=== PATIENT | male | born 1950 | race Caucasian/White ===

== ENCOUNTER 2018-04-02 17:42 | Inpatient (IN) | payer MEDICARE ==
[~2018-04-02] VITALS: Ht 167.6 cm; Wt 108.0 kg
--- NOTE | ~2018-04-02 | PN ---
PATIENT:WALT GONCALVES MEDICAL RECORD: [id number] LOCATION:SARAH ReisJoellenRebecca ADMISSION DATE: 04/02/18 PROGRESS NOTE DATE OF SERVICE: 04/05/2018 SUBJECTIVE: The patient's case was discussed with staff. He has no new complaint. OBJECTIVE: The patient is in good behavioral control. He has not been aggressive. ASSESSMENT: No change in diagnoses. PLAN: The patient is in good behavioral control. He has limited insight about his condition. I am going to discontinue his Zyprexa. TRANSINT:[id number] Voice Confirmation ID: [id number] DOCUMENT ID: [id number] KIET ROLDAN MD at 1348 CC: [id number] DICTATION DATE: 04/05/18 1134 LEAD ELECTRICAL ENGINEER: 04/05/18 1438 ADM IN [place] [id number] [place] [address]
--- NOTE | ~2018-04-02 | PN ---
PATIENT:WALT GONCALVES MEDICAL RECORD: [id number] LOCATION:SARAH Castro113 ADMISSION DATE: 04/02/18 PROGRESS NOTE DATE OF SERVICE: 04/07/2018 SUBJECTIVE: The patient's case was discussed with staff. He has no new complaint. OBJECTIVE: The patient is in fair behavioral control, but still quite confused and at times very aggressive. ASSESSMENT: No change in diagnoses. PLAN: I have reviewed current medicines and will maintain them. His long-term prognosis is guarded. TRANSINT:[id number] Voice Confirmation ID: [id number] DOCUMENT ID: [id number] KIET ROLDAN MD at 0951 CC: [id number] DICTATION DATE: 04/07/18926 REPAIRER AND CHECKER: 04/07/18 1210 ADM IN [place] [id number] [place] [address]
--- NOTE | ~2018-04-02 | PN ---
PATIENT:WALT GONCALVES MEDICAL RECORD: [id number] LOCATION:SARAH Nicholson ADMISSION DATE: 04/02/18 PROGRESS NOTE DATE OF SERVICE: 04/15/2018 SUBJECTIVE: The patient's case was discussed with staff. He has no new complaint. OBJECTIVE: The patient is in good behavioral control. He is not eating very well, but he is not aggressive at all. He does have a number of bizarre delusions. He is taking Zyprexa for that and I think they are improving. ASSESSMENT: No change in diagnoses. PLAN: I am going to continue the current medicines with the exception of the Klonopin, which I am going to consolidate into a single nighttime dose to assist with sleep consolidation. TRANSINT:[id number] Voice Confirmation ID: [id number] DOCUMENT ID: [id number] KIET ROLDAN MD at 1212 CC: [id number] DICTATION DATE: 04/15/18 1106 STUDENT SUCCESS ADVISOR: 04/15/18 1110 ADM IN [place] [id number] [place] [id number]
--- NOTE | ~2018-04-02 | PN ---
PATIENT:WALT GONCALVES MEDICAL RECORD: [id number] LOCATION:SARAH Nicholson ADMISSION DATE: 04/02/18 PROGRESS NOTE DATE OF SERVICE: 04/10/2018 SUBJECTIVE: The patient's case was discussed with staff. He has no new complaint. OBJECTIVE: The patient is in good behavioral control. He has limited insight. He is oriented to person, place and somewhat to time and situation. He was angry yesterday, but it did not become aggressive and he did not require p.r.n. medication. He is tolerating his current dose of Klonopin reasonably well. I think it has made him calmer and at this point I do not see evidence of sedation. He clearly has significant cognitive impairment. I am going to prescribe Aricept at a dose of 10 mg at bedtime. Aricept is being used to treat his underlying cognitive problems. He will be monitored for clinical changes associated with its use. TRANSINT:[id number] Voice Confirmation ID: [id number] DOCUMENT ID: [id number] KIET ROLDAN MD at 1054 CC: [id number] DICTATION DATE: 04/10/18 0950 HOTBED TRANSFER OPERATOR: 04/10/18 1112 ADM IN [place] [id number] [place] [address]
--- NOTE | ~2018-04-02 | PN ---
PATIENT:WALT GONCALVES MEDICAL RECORD: [id number] LOCATION:SARAH Nicholson ADMISSION DATE: 04/02/18 PROGRESS NOTE DATE OF SERVICE: 04/12/2018 SUBJECTIVE: The patient's case was discussed with staff. He has no new complaint. OBJECTIVE: The patient denies intent to harm himself or others. He generally is tolerating his medicines well. ASSESSMENT: No change in diagnoses. PLAN: Current medicines have been reviewed and will be maintained. I am going to change the Klonopin to a twice daily dosing schedule. He will be monitored for clinical changes associated with this. Overall, he is significantly better. TRANSINT:[id number] Voice Confirmation ID: [id number] DOCUMENT ID: [id number] KIET ROLDAN MD at 1223 CC: [id number] DICTATION DATE: 04/12/18 1458 SOFTWARE PROGRAM MANAGER: 04/12/18 1653 ADM IN [place] [address] [place] [id number]
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
--- NOTE | ~2018-04-02 | PN ---
PATIENT:WALT GONCALVES MEDICAL RECORD: [id number] LOCATION:SARAH Nicholson ADMISSION DATE: 04/02/18 PROGRESS NOTE DATE OF SERVICE: 04/06/2018 SUBJECTIVE: The patient's case was discussed with staff. He has no new complaint. OBJECTIVE: The patient denies intent to harm himself or others. He does tolerate his medicines well. He has not been aggressive. He has very limited insight about his condition. ASSESSMENT: No change in diagnoses. PLAN: Supportive and educational interventions were made. Long-term prognosis is guarded. TRANSINT:[id number] Voice Confirmation ID: [id number] DOCUMENT ID: [id number] KIET ROLDAN MD at 0846 CC: [id number] DICTATION DATE: 04/06/18 1449 MANTEL CRAFTSMAN: 04/06/18 1456 ADM IN [place] [address] [place] [address]
--- NOTE | ~2018-04-02 | PSY ---
PATIENT NAME:WALT GONCALVES MEDICAL RECORD: [id number] : 48 LOCATION:SARAH Bonilla ADMISSION DATE: 04/02/18 ACCOUNT: [id number] PSYCHIATRIC EVALUATION DATE OF EVALUATION: 04/03/18 IDENTIFYING DATA: The patient is 67 years old and he is admitted to the hospital on a voluntary basis. CHIEF COMPLAINT: Aggression. HISTORY OF PRESENT ILLNESS: The patient is brought to us from the [facility]. He has been combative with staff there. He has been throwing excrement at others and was not redirectable. The patient now says he does not know what happened, has no recollection of this and denies that there is a problem. He endorses a number of depressive symptoms, but denies that he is depressed. He denies psychotic symptoms. He also denies any thoughts of wanting to harm himself or others. The long term reports that this is a dramatic change in his behaviors. PAST MEDICAL HISTORY: Significant for a fall in 2017. Apparently, he fell down the stairs. At that time, he ended up getting a closed head injury. He apparently was cognitively impaired prior to this. He does have a history of hypertension. He also apparently has occasional seizures associated with the head injury. PAST PSYCHIATRIC HISTORY: Significant for dementia and a closed head injury. He also has a history of depression and aggressive behaviors. FAMILY HISTORY: Noncontributory. ALLERGIES: No known drug allergies. CURRENT MEDICATIONS: Include Zyprexa, Keppra, melatonin, Cozaar, Norvasc, and Zoloft. SOCIAL HISTORY: The patient is single. Apparently, he was in the past. I am not sure if he is or . He says he has 2 adult children. 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 He says that he used to drink a 30-pack of beer daily, but that he quit 4 years ago. MENTAL STATUS EXAMINATION: The patient is awake, alert and oriented to person only. His mood is anxious. His affect is constricted. Thought processes are circumstantial. Memory, concentration, and abstraction abilities are moderately impaired and he denies any active intent to harm himself or others as well as overt psychotic symptoms. ASSETS: Supportive family members. LIABILITIES: Limited insight. DIAGNOSTIC IMPRESSION: AXIS I: Alcohol-related dementia. AXIS II: Deferred. AXIS III: Closed head injury, hypertension, and seizure disorder. AXIS IV: Moderate stressors. AXIS V: Global assessment of functioning is 35. PLAN: At this time, the patient is admitted to the hospital secondary to aggressive behavior associated with a dementing illness. The dementing illness is aggravated by closed head injury a year ago. He will be comprehensively evaluated and treated with both mood stabilizing and memory enhancing medications as deemed appropriate. His long-term prognosis is guarded. TRANSINT:[id number] Voice Confirmation ID: [id number] DOCUMENT ID: [id number] KIET ROLDAN MD at 1107 CC: [id number] DICTATION DATE: 04/03/18 1042 COMMUNICATIONS TECH: 04/03/18 1219 [facility] IN [place] [address] [place] [address]
--- NOTE | ~2018-04-02 | PN ---
PATIENT:WALT GONCALVES MEDICAL RECORD: [id number] LOCATION:SARAH Castro113 ADMISSION DATE: 04/02/18 PROGRESS NOTE DATE OF SERVICE: 04/13/2018 SUBJECTIVE: The patient's case was discussed with staff. He has no new complaint. OBJECTIVE: The patient is much calmer today. He has limited insight about his condition. ASSESSMENT: No change in diagnoses. PLAN: Current medicines and therapies have been reviewed. I am going to reduce his Klonopin very slightly. TRANSINT:[id number] Voice Confirmation ID: [id number] DOCUMENT ID: [id number] KIET ROLDAN MD at 0922 CC: [id number] DICTATION DATE: 04/13/18 1249 FAMILY PRACTICE DOCTOR: 04/13/18 1252 ADM IN [place] [address] [place] [id number]
--- NOTE | ~2018-04-02 | PN ---
PATIENT:WALT GONCALVES MEDICAL RECORD: [id number] LOCATION:SARAH Castro113 ADMISSION DATE: 04/02/18 PROGRESS NOTE DATE OF SERVICE: 04/16/2018 SUBJECTIVE: The patient's case was discussed with staff. He has no new complaint. OBJECTIVE: The patient is in good behavioral control. He has limited insight about his condition. He is not showing any aggression. ASSESSMENT: No change in diagnoses. PLAN: The patient will be transitioned out of the hospital today. He will have follow up with his primary care snf physician. TRANSINT:[id number] Voice Confirmation ID: [id number] DOCUMENT ID: [id number] KIET ROLDAN MD at 1421 CC: [id number] DICTATION DATE: 04/16/18 1243 SUPERVISOR ENGINE REPAIR: 04/16/18 1248 DIS IN 04/16/18 [place] [id number] [place] [address]
--- NOTE | ~2018-04-02 | PN ---
PATIENT:WALT GONCALVES MEDICAL RECORD: [id number] LOCATION:SARAH Nicholson ADMISSION DATE: 04/02/18 PROGRESS NOTE DATE OF SERVICE: 04/14/2018 SUBJECTIVE: The patient's case was discussed with staff. He has no new complaint. OBJECTIVE: The patient denies intent to harm himself or others. He tolerates his medicines well. ASSESSMENT: No change in diagnoses. PLAN: Current medicines have been reviewed and will be maintained. His long-term prognosis is guarded. TRANSINT:[id number] Voice Confirmation ID: [id number] DOCUMENT ID: [id number] KIET ROLDAN MD at 1026 CC: [id number] DICTATION DATE: 04/14/18 113 PHARMACOGNOSIST: 04/14/18 1150 ADM IN [place] [address] [place] [address]
--- NOTE | ~2018-04-02 | PN ---
PATIENT:WALT GONCALVES MEDICAL RECORD: [id number] LOCATION:SARAH Nicholson ADMISSION DATE: 04/02/18 PROGRESS NOTE DATE OF SERVICE: 04/11/2018 SUBJECTIVE: The patient's case was discussed with staff. He has no new complaint. OBJECTIVE: The patient is disorganized with very limited insight about his condition, but he has not been agitated today. ASSESSMENT: No change in diagnoses. PLAN: Supportive and educational interventions were made. I have reviewed his current medications and will maintain them. TRANSINT:[id number] Voice Confirmation ID: [id number] DOCUMENT ID: [id number] KIET ROLDAN MD at 1417 CC: [id number] DICTATION DATE: 04/11/18 1125 SUPERVISOR TUMBLING AND ROLLING: 04/11/18 1308 ADM IN [place] [id number] [place] [address]
--- NOTE | ~2018-04-02 | PN ---
PATIENT:WALT GONCALVES MEDICAL RECORD: [id number] LOCATION:SARAH Castro113 ADMISSION DATE: 04/02/18 PROGRESS NOTE DATE OF SERVICE: 04/09/2018 SUBJECTIVE: The patient's case was discussed with staff. He has no new complaint. OBJECTIVE: The patient had some disruptive acting out behavior, but it is nothing that has required p.r.n. medication. He is pretty limited in his insight. Obviously with his head injury, there is a great deal of disinhibition. I am going to increase the dose of his Zoloft slightly. His long-term prognosis is guarded. TRANSINT:[id number] Voice Confirmation ID: [id number] DOCUMENT ID: [id number] KIET ROLDAN MD at 0926 CC: [id number] DICTATION DATE: 04/09/18 1111 BINDER COVERSTITCH: 04/09/18 1143 ADM IN [facility] [address] [place] [address]
--- NOTE | ~2018-04-02 | PN ---
PATIENT:WALT GONCALVES MEDICAL RECORD: [id number] LOCATION:SARAH Nicholson ADMISSION DATE: 04/02/18 PROGRESS NOTE DATE OF SERVICE: 04/08/2018 SUBJECTIVE: The patient's case was discussed with staff. He has no new complaint. OBJECTIVE: The patient is in good behavioral control with limited insight about his condition. He generally is tolerating his medicines well. Unfortunately, he becomes intermittently quite aggressive with staff. This is seriously problematic in trying to manage his behaviors. I have reviewed his medicines and have decided to start him on a low dose of Klonopin for his underlying agitation and anxiety. He will be monitored for clinical changes associated with its use. TRANSINT:[id number] Voice Confirmation ID: [id number] DOCUMENT ID: [id number] KIET ROLDAN MD at 1024 CC: [id number] DICTATION DATE: 04/08/18 1039 NIGHT CLERK AUDITOR: 04/08/18 1129 ADM IN [place] [address] [place] [address]
[2018-04-02] MEDS ORDERED: COZAAR50 MG PO (19:56)
[2018-04-02] MEDS ORDERED: CIMETIDINE200 MG PO (19:56)
[2018-04-02] MEDS ORDERED: GLYCOLAX527 GM PO (19:57)
[2018-04-02] MEDS ORDERED: ZOLOFT50 MG PO (19:58)
[2018-04-02] MEDS ORDERED: KEPPRA500 MG PO (19:58)
[2018-04-02] MEDS ORDERED: NORVASC5 MG PO (19:59)
[2018-04-02] MEDS ORDERED: MELATONIN 3 MG1 TAB PO (20:00)
[2018-04-02] MEDS ORDERED: ZYPREXA2.5 MG PO (20:01)
[2018-04-02 20:42] VITALS: BP 131/63
[2018-04-03 02:53] VITALS: BP 152/84; BMI 38.5
[2018-04-03 05:56] LABS: BASOPHILS 0.3 % (0-2); EOSINOPHILS 1.8 % (0-7); HEMATOCRIT 38.5 % (42.0-54.0); HEMOGLOBIN 12.9 g/dL (13.5-17.5); IMMATURE GRANULOCYTES 0.1 % (0-5); LYMPHOCYTES 36.2 % (15-50); MCH 30.2 pg (26.0-34.0); MCHC 33.5 g/dL (31.0-37.0); MCV 90.2 fL (80.0-100.0); MEAN PLATELET VOLUME 9.8 fL (7.4-10.4); MONOCYTES 6.9 % (2-11); NEUTROPHILS 54.7 % (40-80); PLATELET COUNT 196 10x3/uL (130-400); RBC 4.27 10x6/uL (4.20-6.10); RDW 13.6 % (11.5-14.5); WBC 7.8 10x3/uL (4.8-10.8)
[2018-04-03 06:08] LABS: ALBUMIN 2.8 g/dL (3.4-5.0); ALKALINE PHOSPHATASE 110 U/L (46-116); ALT (SGPT) 13 U/L (10-68); BILIRUBIN - TOTAL 0.16 mg/dL (0.2-1.3); CALC OSMOLALITY 286 mosm/kg (275-300); CALCIUM 8.3 mg/dL (8.5-10.1); CARBON DIOXIDE 27.2 mmol/L (21.0-32.0); CHLORIDE - SERUM 109 mmol/L (98-107); CHOL - HDL RATIO 3.8 ratio (2.3-4.9); CHOLESTEROL, TOTAL 167 mg/dL (0-200); CREATININE - SERUM 0.8 mg/dL (0.6-1.3); GLUCOSE 86 mg/dL (74-106); HDL CHOLESTEROL 44 mg/dL (32-96); LDL CHOLESTEROL 113 mg/dL (0-100); LDL-HDL RATIO 2.6 ratio (1.5-3.5); POTASSIUM - SERUM 3.7 mmol/L (3.5-5.1); PROTEIN - SERUM 6.2 g/dL (6.4-8.2); SODIUM 144 mmol/L (136-145); THYROID STIMULATING HORMONE 1.19 uIU/mL (0.36-3.74); TRIGLYCERIDE 53 mg/dL (30-200); UREA NITROGEN 16 mg/dL (7-18); eGFR NON AFRICAN AMERICAN > 90 mL/min (90-120)
[2018-04-03 09:46] VITALS: Ht 167.6 cm; Wt 108.0 kg
[2018-04-03 10:30] VITALS: BP 134/78
[2018-04-03 20:27] VITALS: BP 149/81
[2018-04-04 08:09] LABS: VITAMIN D 25 HYDROXY 25.2 ng/mL (30.0-100.0)
[2018-04-04 08:10] VITALS: BP 128/80
[2018-04-04 10:32] LABS: APPEARANCE CLEAR (CLEAR); BILIRUBIN NEGATIVE (NEGATIVE); COLOR YELLOW (YELLOW); GLUCOSE NEGATIVE (NEGATIVE); KETONE NEGATIVE (NEGATIVE); NITRITE NEGATIVE (NEGATIVE); PROTEIN NEGATIVE (NEGATIVE); SPECIFIC GRAVITY 1.015 (1.005-1.020); UROBILINOGEN NORMAL (NORMAL)
[2018-04-04 10:33] LABS: BACTERIA NONE SEEN /hpf (NONE SEEN); EPITHELIAL CELLS 0-5 /hpf (0-5); RED CELLS - URINE NONE SEEN /hpf (0-5); WHITE CELLS - URINE 0-5 /hpf (0-5)
[2018-04-04 20:14] VITALS: BP 140/69
[2018-04-05 08:00] VITALS: BP 138/81
[2018-04-05 19:57] VITALS: BP 143/85
[2018-04-06 03:12] LABS: RAPID PLASMA REAGIN Non Reactive (Non Reactive)
[2018-04-06 07:30] LABS: FOLATE (FOLIC ACID) - SERUM 7.7 ng/mL (>3.0)
[2018-04-06 09:30] VITALS: BP 131/84
[2018-04-06 20:51] VITALS: BP 144/81
[2018-04-07 08:00] VITALS: BP 137/86
[2018-04-07 19:00] VITALS: BP 130/81
[2018-04-08 08:51] VITALS: BP 127/78
[2018-04-08 19:25] VITALS: BP 127/78
[2018-04-08 20:06] VITALS: BP 145/76
[2018-04-09 10:05] VITALS: BP 134/68
[2018-04-09 20:10] VITALS: BP 150/75
[2018-04-10 09:15] VITALS: BP 129/72
[2018-04-10 19:32] VITALS: BP 147/79
[2018-04-11 08:00] VITALS: BP 130/82
[2018-04-11 19:54] VITALS: BP 148/82
[2018-04-12 02:14] LABS: APPEARANCE CLEAR (CLEAR); BILIRUBIN NEGATIVE (NEGATIVE); COLOR YELLOW (YELLOW); GLUCOSE NEGATIVE (NEGATIVE); KETONE NEGATIVE (NEGATIVE); NITRITE NEGATIVE (NEGATIVE); PROTEIN NEGATIVE (NEGATIVE); UROBILINOGEN NORMAL (NORMAL)
[2018-04-12 07:00] VITALS: BP 122/85
[2018-04-12 20:21] VITALS: BP 140/91
[2018-04-13 07:00] VITALS: BP 134/80
[2018-04-13 20:15] VITALS: BP 130/75
[2018-04-14 14:37] VITALS: BP 125/77
[2018-04-14 20:34] VITALS: BP 146/78
[2018-04-15 12:15] VITALS: BP 118/75
[2018-04-15 20:32] VITALS: BP 160/74
[2018-04-16 10:25] VITALS: BP 147/86
[2018-04-16] MEDS ORDERED: Levaquin PO (12:44)
[2018-04-16] MEDS ORDERED: Aricept PO (12:44)
[2018-04-16] MEDS ORDERED: ZOLOFT100 MG PO (12:44)
[2018-04-16] MEDS ORDERED: VITAMIN D5000 UNIT PO (12:45)
[2018-04-16] MEDS ORDERED: KLONOPIN0.5 MG PO (12:45)
[2018-04-16] MEDS ORDERED: GEODON20 MG PO (12:45)
[2018-04-19 18:08] LABS: AEROBE ID Final report (())
[2018-04-22 17:12] LABS: AEROBE ID Final report (())
== END 2018-04-16 14:40 | DRG 897 ==
LOC: D.PSYCH 17:42
PROVIDERS: Family Medicine; Psychiatry & Neurology Psychiatry
DX: F10.97 Alcohol use, unspecified with alcohol-induced persisting dementia (principal); N39.0 Urinary tract infection, site not specified; I10 Essential (primary) hypertension; G40.909 Epilepsy, unspecified, not intractable, without status epilepticus; F41.9 Anxiety disorder, unspecified; F32.9 Major depressive disorder, single episode, unspecified; R26.89 Other abnormalities of gait and mobility; E55.9 Vitamin D deficiency, unspecified; Z91.81 History of falling

== ENCOUNTER 2018-06-08 08:58 | Inpatient (IN) | payer MEDICARE ==
[~2018-06-08] VITALS: Ht 167.6 cm; Wt 108.2 kg
[~2018-06-08 08:58] MED LIST: Aricept PO; CIMETIDINE200 MG PO; COZAAR50 MG PO; GEODON20 MG PO; GLYCOLAX527 GM PO; KEPPRA500 MG PO; KLONOPIN0.5 MG PO; Levaquin PO; MELATONIN 3 MG1 TAB PO; NORVASC5 MG PO; VITAMIN D5000 UNIT PO; ZOLOFT100 MG PO; ZOLOFT50 MG PO; ZYPREXA2.5 MG PO
[2018-06-08 10:27] LABS: BASOPHILS 0.1 % (0-2); EOSINOPHILS 0.6 % (0-7); HEMATOCRIT 44.4 % (42.0-54.0); HEMOGLOBIN 14.6 g/dL (13.5-17.5); IMMATURE GRANULOCYTES 0.1 % (0-5); LYMPHOCYTES 20.3 % (15-50); MCH 29.8 pg (26.0-34.0); MCHC 32.9 g/dL (31.0-37.0); MCV 90.6 fL (80.0-100.0); MEAN PLATELET VOLUME 9.8 fL (7.4-10.4); MONOCYTES 4.2 % (2-11); NEUTROPHILS 74.7 % (40-80); PLATELET COUNT 196 10x3/uL (130-400); RDW 13.2 % (11.5-14.5); WBC 8.3 10x3/uL (4.8-10.8)
[2018-06-08 10:42] LABS: ALBUMIN 3.2 g/dL (3.4-5.0); ANION GAP 10.2 mmol/L (8-16); BILIRUBIN - TOTAL 0.24 mg/dL (0.2-1.3); CALCIUM 8.5 mg/dL (8.5-10.1); CARBON DIOXIDE 30.7 mmol/L (21.0-32.0); CHOL - HDL RATIO 5.4 ratio (2.3-4.9); CREATININE - SERUM 1.1 mg/dL (0.6-1.3); LDL-HDL RATIO 3.5 ratio (1.5-3.5); POTASSIUM - SERUM 3.9 mmol/L (3.5-5.1); PROTEIN - SERUM 7.2 g/dL (6.4-8.2); THYROID STIMULATING HORMONE 0.83 uIU/mL (0.36-3.74)
[2018-06-08 13:01] VITALS: BP 110/58; BMI 38.5
[2018-06-08] MEDS ORDERED: CIMETIDINE200 MG PO (13:24)
[2018-06-08] MEDS ORDERED: GEODON20 MG PO (13:25)
[2018-06-08 19:45] VITALS: BP 141/66
[2018-06-09 07:30] LABS: RAPID PLASMA REAGIN Non Reactive (Non Reactive)
[2018-06-09 08:20] LABS: FOLATE (FOLIC ACID) - SERUM 9.7 ng/mL (>3.0); VITAMIN D 25 HYDROXY 35.2 ng/mL (30.0-100.0)
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
[2018-06-09 09:49] VITALS: BMI 38.4
[2018-06-09 10:19] VITALS: BP 121/72
[2018-06-09 19:41] VITALS: BP 136/80
--- NOTE | 2018-06-10 12:29 | PN ---
PATIENT:WALT GONCALVES MEDICAL RECORD: [id number] LOCATION:SARAH Horton ADMISSION DATE: 06/08/18 PROGRESS NOTE DATE OF SERVICE: 06/09/2018 SUBJECTIVE: The patient's case was discussed with staff. He has no new complaint. OBJECTIVE: The patient denies intent to harm himself or others. He generally tolerates his medicines well. ASSESSMENT: No change in diagnoses. PLAN: Current medicines have been reviewed and will be maintained. Long-term prognosis is guarded. TRANSINT:[id number] Voice Confirmation ID: [id number] DOCUMENT ID: [id number] KIET ROLDAN MD at 1229 CC: [id number] DICTATION DATE: 06/09/18 09 GETTER FILLER: 06/09/18 1140 ADM IN [place] [id number] [place] [address]
[2018-06-10 17:02] VITALS: BP 120/74
[2018-06-10 20:00] VITALS: BP 138/79
[2018-06-11 09:44] VITALS: BP 121/69
--- NOTE | 2018-06-11 12:55 | PN ---
PATIENT:WALT GONCALVES MEDICAL RECORD: [id number] LOCATION:SARAH Castro112 ADMISSION DATE: 06/08/18 PROGRESS NOTE DATE OF SERVICE: 06/10/2018 SUBJECTIVE: The patient's case was discussed with staff. He has no new complaint. OBJECTIVE: The patient denies intent to harm himself or others. He does make some statements that are delusional. He has pretty limited insight about his situation. ASSESSMENT: No change in diagnoses. PLAN: Current medicines have been reviewed and will be maintained. His long-term prognosis is guarded. Brief supportive and educational interventions were made. TRANSINT:[id number] Voice Confirmation ID: [id number] DOCUMENT ID: [id number] KIET ROLDAN MD at 1255 CC: [id number] DICTATION DATE: 06/10/18 1249 SEWER: 06/10/18 1405 ADM IN [facility] [address] [place] [address]
[2018-06-11 16:22] VITALS: Ht 167.6 cm; Wt 108.2 kg
[2018-06-11 19:52] VITALS: BP 137/80
--- NOTE | 2018-06-12 08:46 | PN ---
PATIENT:WALT GONCALVES MEDICAL RECORD: [id number] LOCATION:SARAH Horton ADMISSION DATE: 06/08/18 PROGRESS NOTE DATE OF SERVICE: 06/11/2018 SUBJECTIVE: The patient's case was discussed with staff. He has no new complaint. OBJECTIVE: The patient was quite agitated yesterday. He was angry, cursing, disruptive, and was about to receive an injection when he calmed down. ASSESSMENT: No change in diagnoses. PLAN: The patient has no recollection of what occurred. Apparently, he was triggered by something insignificant. He will be maintained on current medicines, but I am going to increase the dose of the Geodon. I am a little concerned about causing some sedation, but weighing the relative risks and benefit, I think this is the correct action. TRANSINT:[id number] Voice Confirmation ID: [id number] DOCUMENT ID: [id number] KIET ROLDAN MD at 0846 CC: [id number] DICTATION DATE: 06/11/18 1322 HIGH SCHOOL BAND TEACHER: 06/11/18 1653 ADM IN [facility] [address] [place] [id number]
[2018-06-12 09:51] VITALS: BP 114/71
[2018-06-12 10:10] VITALS: BP 114/71
[2018-06-12 19:00] VITALS: BP 118/66
[2018-06-13 07:00] VITALS: BP 157/88
--- NOTE | 2018-06-13 11:30 | PN ---
PATIENT:WALT GONCALVES MEDICAL RECORD: [id number] LOCATION:SARAH ReisJoellenMarisol ADMISSION DATE: 06/08/18 PROGRESS NOTE DATE OF SERVICE: 06/12/2018 SUBJECTIVE: The patient's case was discussed with staff. He has no new complaint. OBJECTIVE: The patient is in good behavioral control with limited insight about his condition. He tolerates his medicines well. ASSESSMENT: No change in diagnoses. PLAN: The patient will be maintained on current medicines, which have been reviewed. Long-term prognosis is guarded. TRANSINT:[id number] Voice Confirmation ID: [id number] DOCUMENT ID: [id number] KIET ROLDAN MD at 1130 CC: [id number] DICTATION DATE: 06/12/18 1008 CHROME PLATER: 06/12/18 1202 ADM IN [place] [id number] [place] [address]
[2018-06-13 20:12] VITALS: BP 140/78
[2018-06-14 07:00] VITALS: BP 115/75
--- NOTE | 2018-06-14 09:41 | PN ---
PATIENT:WALT GONCALVES MEDICAL RECORD: [id number] LOCATION:SARAH Horton ADMISSION DATE: 06/08/18 PROGRESS NOTE DATE OF SERVICE: 06/13/2018 SUBJECTIVE: The patient's case was discussed with staff. He has no new complaint. OBJECTIVE: The patient is in good behavioral control with limited insight about his condition. He has not been aggressive. ASSESSMENT: No change in diagnoses. PLAN: Brief supportive and educational interventions were made. Long-term prognosis is guarded. TRANSINT:[id number] Voice Confirmation ID: [id number] DOCUMENT ID: [id number] KIET ROLDAN MD at 0941 CC: [id number] DICTATION DATE: 06/13/18 1138 ALLERGIST IMMUNOLOGIST: 06/13/18 1534 ADM IN [place] [address] [place] [id number]
[2018-06-14 21:59] VITALS: BP 104/54
[2018-06-15 08:00] VITALS: BP 138/60
--- NOTE | 2018-06-15 09:43 | PN ---
PATIENT:WALT GONCALVES MEDICAL RECORD: [id number] LOCATION:SARAH Horton ADMISSION DATE: 06/08/18 PROGRESS NOTE DATE OF SERVICE: 06/14/2018 SUBJECTIVE: The patient's case was discussed with staff. He has no new complaint. OBJECTIVE: The patient is in good behavioral control with limited insight about his condition. He tolerates his medicines well. ASSESSMENT: No change in diagnoses. PLAN: Brief supportive and educational interventions were made. Long-term prognosis is guarded. TRANSINT:[id number] Voice Confirmation ID: [id number] DOCUMENT ID: [id number] KIET ROLDAN MD at 0943 CC: [id number] DICTATION DATE: 06/14/18 1034 LAND ACQUISITION ANALYST: 06/14/18 1104 ADM IN [place] [id number] [place] [address]
[2018-06-15 21:00] VITALS: BP 140/72
[2018-06-16 08:00] VITALS: BP 145/89
--- NOTE | 2018-06-16 15:07 | PN ---
PATIENT:WALT GONCALVES MEDICAL RECORD: [id number] LOCATION:SARAH GloriaMarisol ADMISSION DATE: 06/08/18 PROGRESS NOTE DATE OF SERVICE: 06/15/2018 SUBJECTIVE: The patient's case was discussed with staff. He has no new complaint. OBJECTIVE: The patient is in good behavioral control. He tolerates his medicines well. ASSESSMENT: No change in diagnoses. PLAN: Current medicines have been reviewed and will be maintained. Long-term prognosis is guarded. TRANSINT:[id number] Voice Confirmation ID: [id number] DOCUMENT ID: [id number] KIET ROLDAN MD at 1507 CC: [id number] DICTATION DATE: 06/15/18 0958 VIBRATING SCREED OPERATOR: 06/15/18 1010 ADM IN [place] [id number] [place] [address]
[2018-06-16 19:25] VITALS: BP 140/78
[2018-06-17 10:19] VITALS: BP 116/63
--- NOTE | 2018-06-17 14:21 | PN ---
PATIENT:WALT GONCALVES MEDICAL RECORD: [id number] LOCATION:SARAH Horton ADMISSION DATE: 06/08/18 PROGRESS NOTE DATE OF SERVICE: 06/16/2018 SUBJECTIVE: The patient's case was discussed with staff. He has no new complaint. OBJECTIVE: The patient is in good behavioral control with limited insight about his condition. He generally tolerates his medicines well. ASSESSMENT: No change in diagnoses. PLAN: Supportive and educational interventions were made. Long-term prognosis is guarded. He has not been openly actively aggressive today, although he is still very disorganized. I am a little concerned about the Geodon. He does appear to be a little sedated, but I am not sure if it is medication related. The day room staff tell me he has been awake and active today. I will wait another day to assess this and it may be necessary to reduce the dose of the medication. TRANSINT:[id number] Voice Confirmation ID: [id number] DOCUMENT ID: [id number] KIET ROLDAN MD at 1421 CC: [id number] DICTATION DATE: 06/16/18 1520 PRINTED CIRCUIT BOARDS SOLDER LEVELER: 06/16/18 1641 ADM IN [facility] [address] [place] [address]
[2018-06-17 20:05] VITALS: BP 131/70
[2018-06-18 08:41] VITALS: BP 154/82
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
[2018-06-18 19:46] VITALS: BP 146/54
[2018-06-19 08:00] VITALS: BP 129/81
--- NOTE | 2018-06-19 13:46 | PN ---
PATIENT:WALT GONCALVES MEDICAL RECORD: [id number] LOCATION:SARAH Horton ADMISSION DATE: 06/08/18 PROGRESS NOTE DATE OF SERVICE: 06/18/2018 SUBJECTIVE: The patient's case was discussed with staff. He has no new complaint. OBJECTIVE: The patient denies intent to harm himself or others. Yesterday, he became very agitated and was about to receive p.r.n. injection when he calmed down. When asked about this today, he does not have any real recognition of it. ASSESSMENT: No change in diagnoses. PLAN: The patient is going to be treated with current medicines plus a low dose of Klonopin to assist with his underlying anxiety. He will be monitored for clinical changes associated with its use. His long-term prognosis is guarded. TRANSINT:[id number] Voice Confirmation ID: [id number] DOCUMENT ID: [id number] KIET ROLDAN MD at 1346 CC: [id number] DICTATION DATE: 06/18/18 1546 CUSTOMER TECHNICAL SERVICES MANAGER: 06/18/18 2324 ADM IN [place] [address] [id number] [place] [address]
[2018-06-19 21:16] VITALS: BP 127/65
--- NOTE | 2018-06-20 11:13 | PN ---
PATIENT:WALT GONCALVES MEDICAL RECORD: [id number] LOCATION:SARAH GloriaMarisol ADMISSION DATE: 06/08/18 PROGRESS NOTE DATE OF SERVICE: 06/19/2018 SUBJECTIVE: The patient's case was discussed with staff. He has no new complaint. OBJECTIVE: The patient denies intent to harm himself or others. He is tolerating his medicines well. He has not been aggressive today. TRANSINT:[id number] Voice Confirmation ID: [id number] DOCUMENT ID: [id number] KIET ROLDAN MD at 1113 CC: [id number] DICTATION DATE: 06/19/18 1501 ECONOMIC CONSULTANT: 06/19/18 2130 ADM IN [place] [id number] [place] [id number]
[2018-06-21 10:30] VITALS: BP 134/88
--- NOTE | 2018-06-21 13:23 | PN ---
PATIENT:WALT GONCALVES MEDICAL RECORD: [id number] LOCATION:SARAH ReisJoellen112 ADMISSION DATE: 06/08/18 PROGRESS NOTE DATE OF SERVICE: 06/20/2018 SUBJECTIVE: The patient's case was discussed with staff. He has no new complaint. OBJECTIVE: The patient is in good behavioral control with limited insight about his condition. He does tolerate his medicines well. ASSESSMENT: No change in diagnoses. PLAN: Supportive and educational interventions were made. Long-term prognosis is guarded. TRANSINT:[id number] Voice Confirmation ID: [id number] DOCUMENT ID: [id number] KIET ROLDAN MD at 1323 CC: [id number] DICTATION DATE: 06/20/18 1118 ASSOCIATE DATA SCIENTIST: 06/20/18 1526 ADM IN [place] [address] [place] [address]
[2018-06-21 20:40] VITALS: BP 118/62
--- NOTE | 2018-06-22 10:58 | PN ---
PATIENT:WALT GONCALVES MEDICAL RECORD: [id number] LOCATION:SARAH ReisJoellen112 ADMISSION DATE: 06/08/18 PROGRESS NOTE DATE OF SERVICE: 06/21/2018 SUBJECTIVE: The patient's case was discussed with staff. He has no new complaint. OBJECTIVE: The patient is in good behavioral control. He was p.r.n.'ed yesterday because of agitation, but today he is better. ASSESSMENT: No change in diagnoses. PLAN: I have reviewed this patient's current medications and do believe that the low dose of Klonopin has assisted him with his impulse control. I am going to maintain it as it is for the time being, and if this level of improvement continues, I would anticipate he could reasonably be transitioned back to the [facility] soon. TRANSINT:[id number] Voice Confirmation ID: [id number] DOCUMENT ID: [id number] KIET ROLDAN MD at 1058 CC: [id number] DICTATION DATE: 06/21/18 1344 YARD LOADER OPERATOR: 06/21/18 1714 ADM IN [facility] [address] [place] [id number]
[2018-06-22 11:27] VITALS: BP 146/84
[2018-06-22 19:24] VITALS: BP 91/48
[2018-06-23 08:00] VITALS: BP 168/84
--- NOTE | 2018-06-23 17:30 | PN ---
PATIENT:WALT GONCALVES MEDICAL RECORD: [id number] LOCATION:SARAH Horton ADMISSION DATE: 06/08/18 PROGRESS NOTE DATE OF SERVICE: 06/22/2018 SUBJECTIVE: The patient's case was discussed with staff. He has no new complaint. OBJECTIVE: The patient is in good behavioral control with limited insight about his condition. He does tolerate his medicines well. ASSESSMENT: No change in diagnoses. PLAN: The patient has shown improvement the past few days. If this level of improvement continues, I anticipate he can be transitioned out of the hospital soon. TRANSINT:[id number] Voice Confirmation ID: [id number] DOCUMENT ID: [id number] KIET ROLDAN MD at 1730 CC: [id number] DICTATION DATE: 06/22/18 1232 FOLDED CLOTH TAPER: 06/22/18 2204 ADM IN [place] [id number] [place] [id number]
[2018-06-23 21:09] VITALS: BP 126/73
[2018-06-24 09:04] VITALS: BP 159/78
--- NOTE | 2018-06-24 15:00 | PN ---
PATIENT:WALT GONCALVES MEDICAL RECORD: [id number] LOCATION:SARAH Horton ADMISSION DATE: 06/08/18 PROGRESS NOTE DATE OF SERVICE: 06/23/2018 SUBJECTIVE: The patient's case was discussed with staff. He has no new complaint. OBJECTIVE: The patient is in good behavioral control with limited insight about his condition. He has not been aggressive today. ASSESSMENT: No change in diagnoses. PLAN: Brief supportive and educational interventions were made. The patient is certainly much calmer than he has been. He will be monitored for clinical changes associated with his current medicines and current medicines will be maintained. TRANSINT:[id number] Voice Confirmation ID: [id number] DOCUMENT ID: [id number] KIET ROLDAN MD at 1500 CC: [id number] DICTATION DATE: 06/23/18 174 KINDERGARTEN PARAPROFESSIONAL: 06/23/18 1842 ADM IN [facility] [address] [place] [id number]
[2018-06-24 19:34] VITALS: BP 162/79
[2018-06-24 22:10] LABS: APPEARANCE CLEAR (CLEAR); BILIRUBIN NEGATIVE (NEGATIVE); COLOR YELLOW (YELLOW); GLUCOSE NEGATIVE (NEGATIVE); KETONE SMALL mg/dL (NEGATIVE); NITRITE NEGATIVE (NEGATIVE); PROTEIN NEGATIVE (NEGATIVE); RED CELLS - URINE NONE SEEN /hpf (0-5); SPECIFIC GRAVITY 1.025 (1.005-1.020); UROBILINOGEN NORMAL (NORMAL); WHITE CELLS - URINE NSEEN /hpf (0-5)
[2018-06-25 08:10] VITALS: BP 111/74
[2018-06-25 20:00] VITALS: BP 121/78
--- NOTE | 2018-06-26 12:34 | PN ---
PATIENT:WALT GONCALVES MEDICAL RECORD: [id number] LOCATION:SARAH ReisJoellen112 ADMISSION DATE: 06/08/18 PROGRESS NOTE DATE OF SERVICE: 06/25/2018 SUBJECTIVE: The patient's case was discussed with staff. He has no new complaint. OBJECTIVE: The patient has had some episodes of anxiety, but it has not escalated into anything that would be seriously problematic or dangerous. I think that is probably largely related to the supportive structured therapeutic environment he is in. I am; however, going to maintain his current medicines and add to them a dose of BuSpar to assist with this anxiety. His long-term prognosis is guarded. Supportive and educational interventions were made. TRANSINT:[id number] Voice Confirmation ID: [id number] DOCUMENT ID: [id number] KEIT ROLDAN MD at 1234 CC: [id number] DICTATION DATE: 06/25/18 1501 PREPRESS MANAGER: 06/25/18 2127 ADM IN [address] [place] [address]
--- NOTE | 2018-06-26 12:34 | PN ---
PATIENT:WALT GONCALVES MEDICAL RECORD: [id number] LOCATION:SARAH Horton ADMISSION DATE: 06/08/18 PROGRESS NOTE DATE OF SERVICE: 06/24/2018 SUBJECTIVE: The patient's case was discussed with staff. He has no new complaint. OBJECTIVE: The patient has pretty limited insight about the situation, although he is tolerating his current medicines well. He has not been aggressive today. ASSESSMENT: No change in diagnoses. PLAN: If this level of improvement continues, I anticipate he can be transitioned out of the hospital soon. There are issues administratively related to the office of long-term care and approval for placement as well as if the [facility] actually is going to accept him back. Hopefully, those can be handled in the next couple of days. TRANSINT:[id number] Voice Confirmation ID: [id number] DOCUMENT ID: [id number] KIET ROLDAN MD at 1234 CC: [id number] DICTATION DATE: 06/24/18 1524 DIET TECHNICIAN REGISTERED: 06/24/182005 ADM IN [facility] [address] [place] [address]
[2018-06-26 21:10] VITALS: BP 135/76
[2018-06-27 07:00] VITALS: BP 148/87
--- NOTE | 2018-06-27 10:00 | PN ---
PATIENT:WALT GONCALVES MEDICAL RECORD: [id number] LOCATION:SARAH ReisJoellenMarisol ADMISSION DATE: 06/08/18 PROGRESS NOTE DATE OF SERVICE: 06/26/2018 SUBJECTIVE: The patient's case was discussed with staff. He has no new complaint. OBJECTIVE: The patient is in good behavioral control with limited insight about his condition. He tolerates his medicines well. Eye contact is fair. ASSESSMENT: No change in diagnoses. PLAN: Current medicines and therapies have been reviewed and will be maintained. Long-term prognosis is guarded. TRANSINT:[id number] Voice Confirmation ID: [id number] DOCUMENT ID: [id number] KIET ROLDAN MD at 1000 CC: [id number] DICTATION DATE: 06/26/18 1238 KENO MANAGER: 06/26/18 1415 ADM IN [facility] [address] [place] [address]
[2018-06-27 22:33] VITALS: BP 150/80
[2018-06-28 08:10] VITALS: BP 118/76
--- NOTE | 2018-06-28 13:56 | PN ---
PATIENT:WALT GONCALVES MEDICAL RECORD: [id number] LOCATION:SARAH ReisJoellenMarisol ADMISSION DATE: 06/08/18 PROGRESS NOTE DATE OF SERVICE: 06/27/2018 SUBJECTIVE: The patient's case was discussed with staff. He has no new complaint. OBJECTIVE: The patient is in good behavioral control with limited insight about his condition. He tolerates his medicines well. ASSESSMENT: No change in diagnoses. PLAN: Brief supportive and educational interventions were made. Long-term prognosis is guarded. TRANSINT:[id number] Voice Confirmation ID: [id number] DOCUMENT ID: [id number] KIET ROLDAN MD at 1356 CC: [id number] DICTATION DATE: 06/27/18 1012 STEEPLE JACK: 06/27/18 1025 ADM IN [address] [address]
[2018-06-28] MEDS ORDERED: KLONOPIN0.5 MG PO (15:49)
[2018-06-28] MEDS ORDERED: PERIDEX PO (15:49)
[2018-06-28] MEDS ORDERED: GEODON20 MG PO (15:49)
[2018-06-28] MEDS ORDERED: BUSPAR5 MG PO (15:49)
[2018-06-28] MEDS ORDERED: LIDODERM 5 %1 PATCH TRANSDERM (15:50)
[2018-06-28 23:16] VITALS: BP 140/70
[2018-06-29 09:06] VITALS: BP 126/79
--- NOTE | 2018-06-29 15:13 | PN ---
PATIENT:WALT GONCALVES MEDICAL RECORD: [id number] LOCATION:SARAH Horton ADMISSION DATE: 06/08/18 PROGRESS NOTE DATE OF SERVICE: 06/28/2018 SUBJECTIVE: The patient's case was discussed with staff. He has no new complaint. OBJECTIVE: The patient did not sleep well last night for reasons that are unclear, but in general, he has slept reasonably well. Given his overall condition, I think he has significantly improved and I do not continue to think that he represents a risk or danger to other patients or staff. Based on this, I am going to transition him out of the hospital and back to the correction tomorrow morning. His long-term prognosis is guarded and follow up will be with his primary care correction physician. TRANSINT:[id number] Voice Confirmation ID: [id number] DOCUMENT ID: [id number] KIET ROLDAN MD at 1513 CC: [id number] DICTATION DATE: 06/28/18 1548 DRY TRANSFER WORKER: 06/28/18 1746 ADM IN [facility] [address] [place] [address]
--- NOTE | 2018-06-30 15:00 | PN ---
PATIENT:WALT GONCALVES MEDICAL RECORD: [id number] LOCATION:SARAH ReisJoellenMarisol ADMISSION DATE: 06/08/18 PROGRESS NOTE DATE OF SERVICE: 06/29/2018 SUBJECTIVE: The patient's case was discussed with staff. He has no new complaint. OBJECTIVE: The patient is in good behavioral control with limited insight about his condition. He has not been aggressive. ASSESSMENT: No change in diagnoses. PLAN: Current medicines have been reviewed and will be maintained. His long-term prognosis is guarded. Brief supportive and educational interventions were made. TRANSINT:[id number] Voice Confirmation ID: [id number] DOCUMENT ID: [id number] KIET ROLDAN MD at 1500 CC: [id number] DICTATION DATE: 06/29/18 1607 CONTROL ROOM AGENT: 06/29/18 1826 DIS IN 06/29/18 [place] [id number] [place] [address]
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
== END 2018-06-29 15:45 | DRG 897 ==
LOC: D.PSYCH 08:58
PROVIDERS: ADMIT Psychiatry & Neurology Psychiatry
DX: F10.97 Alcohol use, unspecified with alcohol-induced persisting dementia (principal); I10 Essential (primary) hypertension; Z87.828 Personal history of other (healed) physical injury and trauma; R56.9 Unspecified convulsions; Z91.81 History of falling; F41.9 Anxiety disorder, unspecified; F32.9 Major depressive disorder, single episode, unspecified; K59.00 Constipation, unspecified; E55.9 Vitamin D deficiency, unspecified; G47.00 Insomnia, unspecified; M25.511 Pain in right shoulder

== ENCOUNTER 2018-09-07 06:17 | Emergency (ER) | payer MEDICARE, MEDICAID ==
[~2018-09-07] VITALS: Ht 167.6 cm; Wt 90.9 kg
[~2018-09-07 06:17] MED LIST changes: +BUSPAR5 MG PO; +LIDODERM 5 %1 PATCH TRANSDERM; +PERIDEX PO
[2018-09-07 06:19] VITALS: Ht 167.6 cm; Wt 90.9 kg
[2018-09-07 08:41] VITALS: BP 131/77
== END 2018-09-07 08:38 ==
LOC: D.ER 06:17
DX: Z91.81 History of falling (principal)

== ENCOUNTER 2018-11-21 15:34 | Emergency (ER) | payer MEDICARE, MEDICAID ==
[2018-11-21 16:05] VITALS: BMI 32.8
[2018-11-21 19:35] VITALS: BP 145/94
== END 2018-11-21 19:35 ==
LOC: D.ER 15:34
DX: S09.90XA Unspecified injury of head, initial encounter (principal); S00.212A Abrasion of left eyelid and periocular area, initial encounter; W08.XXXA Fall from other furniture, initial encounter; Y93.89 Activity, other specified; Y92.89 Other specified places as the place of occurrence of the external cause

== ENCOUNTER 2019-01-04 19:13 | Inpatient (IN) | payer MEDICARE, MEDICAID ==
[~2019-01-04] VITALS: Ht 167.6 cm; Wt 92.0 kg
[2019-01-04 19:15] VITALS: BP 112/63
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
[2019-01-04] MEDS ORDERED: BUSPAR10 MG PO (21:09)
[2019-01-04] MEDS ORDERED: GEODON20 MG PO (21:12)
[2019-01-04] MEDS ORDERED: GLUCOTROL ER2.5 MG PO (21:13)
[2019-01-04] MEDS ORDERED: REMERON15 MG PO (21:16)
[2019-01-04] MEDS ORDERED: NOVOLOG100 UNIT/1 SC (21:17)
[2019-01-05 06:37] LABS: BASOPHILS 0.4 % (0-2); EOSINOPHILS 1.9 % (0-7); HEMATOCRIT 41.7 % (42.0-54.0); HEMOGLOBIN 14.2 g/dL (13.5-17.5); IMMATURE GRANULOCYTES 0.1 % (0-5); LYMPHOCYTES 33.3 % (15-50); MCH 30.7 pg (26.0-34.0); MCHC 34.1 g/dL (31.0-37.0); MCV 90.3 fL (80.0-100.0); MEAN PLATELET VOLUME 10.4 fL (7.4-10.4); MONOCYTES 4.8 % (2-11); NEUTROPHILS 59.5 % (40-80); PLATELET COUNT 170 10x3/uL (130-400); RBC 4.62 10x6/uL (4.20-6.10); RDW 13.7 % (11.5-14.5); WBC 7.5 10x3/uL (4.8-10.8)
[2019-01-05 06:54] LABS: ALKALINE PHOSPHATASE 103 U/L (46-116); ALT (SGPT) 14 U/L (10-68); BILIRUBIN - TOTAL 0.25 mg/dL (0.2-1.3); CALC OSMOLALITY 290 mosm/kg (275-300); CALCIUM 8.5 mg/dL (8.5-10.1); CARBON DIOXIDE 31.2 mmol/L (21.0-32.0); CHLORIDE - SERUM 109 mmol/L (98-107); CHOL - HDL RATIO 4.2 ratio (2.3-4.9); CHOLESTEROL, TOTAL 166 mg/dL (0-200); CREATININE - SERUM 0.9 mg/dL (0.6-1.3); GLUCOSE 80 mg/dL (74-106); HDL CHOLESTEROL 40 mg/dL (32-96); LDL CHOLESTEROL 109 mg/dL (0-100); LDL-HDL RATIO 2.7 ratio (1.5-3.5); POTASSIUM - SERUM 3.9 mmol/L (3.5-5.1); PROTEIN - SERUM 6.5 g/dL (6.4-8.2); SODIUM 145 mmol/L (136-145); THYROID STIMULATING HORMONE 1.88 uIU/mL (0.36-3.74); TRIGLYCERIDE 85 mg/dL (30-200); UREA NITROGEN 20 mg/dL (7-18); eGFR NON AFRICAN AMERICAN 89 mL/min (90-120)
[2019-01-05 09:39] VITALS: BP 137/74
[2019-01-05 09:48] VITALS: BMI 32.6
--- NOTE | 2019-01-05 10:00 | NUR ---
RECEIVED PT IN DINING ROOM FOR B'FAST, ALERT, CALM, COOPERATIVE. SPEAKS IN [place]. MEDS ADMIN PER ORDERS WITH COMPLETE MED COMPLIANCE NOTED. COOPERATIVE WITH GROUP ACTIVITY AND STAFF REQUESTS. CONT POC DIRECTED.
[2019-01-05 16:32] VITALS: Ht 167.6 cm; Wt 92.0 kg
[2019-01-05 19:53] VITALS: BP 143/80
--- NOTE | 2019-01-05 23:51 | NUR ---
PATIENT IS AGGRESSIVE AT TIMES, COMPLIANT AT TIMES, LABILE, ARGUMENTATIVE, WILL FOLLOW POC
[2019-01-06 07:14] LABS: RAPID PLASMA REAGIN Non Reactive (Non Reactive)
[2019-01-06 09:40] VITALS: BP 102/79
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
--- NOTE | 2019-01-06 15:23 | NUR ---
Treatment team review Nutrition follow-up: Diet: ADA PO intake 100% last 3 meals Labs reviewed Wt: 202# RDN following.
--- NOTE | 2019-01-06 20:44 | NUR ---
PATIENT IS CONFUSED, EASILY AGITATED, CAN MAKE NEEDS KNOWN, HAS TO BE REDIRECTED OFTEN, COMPLIANT WITH MEDS. WILL FOLLOW POC
[2019-01-07 04:30] VITALS: BP 135/75
--- NOTE | 2019-01-07 09:14 | NUR ---
PATIENT SITTING IN CHAIR AT THE TABLE. RESP EVEN AND NONLABORED. NO ACUTE DISTRESS NOTED. PT IS WEARING HELMET AT THIS TIME. PT IS IN WHEELCHAIR WITH CHAIR ALARM IN PLACE AND ACTIVE. MED COMPLIANT. PT IS PLESANT WITH STAFF AND PEERS. WILL CONT PLAN OF CARE.
[2019-01-07 09:22] VITALS: BP 123/73
[2019-01-07 10:26] VITALS: BP 123/73
--- NOTE | 2019-01-07 11:14 | NUR ---
CHANGED DRESSING TO PATIETN BILATERAL FEETS AND LEFT ANKLE. PT TOLERATED WELL.
--- NOTE | 2019-01-07 15:51 | PN ---
PATIENT:WALT GONCALVES MEDICAL RECORD: [id number] LOCATION:SARAH Castro112 ADMISSION DATE: 01/04/19 PROGRESS NOTE DATE OF SERVICE: 01/06/2019 SUBJECTIVE: The patient's case was discussed with staff. He has no new complaint. OBJECTIVE: The patient is somewhat irritable and withdrawn. He has pretty limited insight about his situation. He has not been actively aggressive. ASSESSMENT: Alcohol-related dementia. PLAN: The patient's BuSpar is going to be discontinued secondary to a lack of benefit in an alcoholic who has a long history of alcoholism and also a man who has exposure to a benzodiazepine. I do not think it is very effective and it is certainly not expensive we are doing him any harm, but I do not think there is any point to it and so I am going to discontinue it. TRANSINT:[id number] Voice Confirmation ID: [id number] DOCUMENT ID: [id number] KIET ROLDAN MD at 1551 CC: [id number] DICTATION DATE: 01/06/19 1445 CORE STRIPPER: 01/06/19 1507 ADM IN [facility] [address] [place] [id number]
--- NOTE | 2019-01-07 19:11 | NUR ---
PATIENT REFUSED TO ALLOW [facility] TO CHANGE WET CLOTHES. ATTEMPTED X3 TO CHANGE CLOTHES. PATIENT REFUSED.
[2019-01-07 22:27] VITALS: BP 136/77
--- NOTE | 2019-01-08 02:05 | NUR ---
B) Patient is alert and oriented to self, very confused, social with peers, I) Administered scheduled medications as ordered, monitored for safety R) Mediation compliant, follows instructions, P) Continue plan of care.
[2019-01-08 10:30] VITALS: BP 107/72
--- NOTE | 2019-01-08 10:53 | NUR ---
RECEIVED PATIENT IN DINING ROOM FOR B'FAST, ALERT, CALM, COOPERATIVE. MEDS ADMIN PER ORDERS WITH COMPLETE MED COMPLIANCE NOTED. COOPERATIVE WITH STAFF AND GROUP THERAPY. NO AGGRESSION NOTED. CONT POC INCLUDING MEDS AND GROUP THERPAY DIRECTED.
--- NOTE | 2019-01-08 11:56 | PN ---
PATIENT:WALT GONCALVES MEDICAL RECORD: [id number] LOCATION:SARAH Horton ADMISSION DATE: 01/04/19 PROGRESS NOTE DATE OF SERVICE: 01/07/2019 SUBJECTIVE: The patient's case was discussed with staff. He has no new complaint. OBJECTIVE: The patient denies intent to harm himself or others. He is tolerating his medicines well. ASSESSMENT: No change in diagnoses. PLAN: I have decided to discontinue the patient's Keppra. First, I would like for him to be on a therapeutic dose of Dilantin. His long-term prognosis is guarded. TRANSINT:[id number] Voice Confirmation ID: [id number] DOCUMENT ID: [id number] KIET ROLDAN MD at 1156 CC: [id number] DICTATION DATE: 01/07/19 171 COMMISSARY HELPER: 01/07/19 2119 ADM IN [place] [id number] [place] [address]
[2019-01-08 20:10] VITALS: BP 136/83
--- NOTE | 2019-01-08 23:37 | NUR ---
B.) Patient is alert and oriented to self. Social with peers and staff. I.) Provided PM medications per MAR. Assessed for needs. R.) Compliant with all medications and refused further needs at this time. P.) Continue Plan of Care.
[2019-01-09 07:00] VITALS: BP 126/79
--- NOTE | 2019-01-09 11:41 | PN ---
PATIENT:WALT GONCALVES MEDICAL RECORD: [id number] LOCATION:[facility] Castro[facility] ADMISSION DATE: 01/04/19 PROGRESS NOTE DATE OF SERVICE: 01/08/2019 SUBJECTIVE: The patient's case was discussed with staff. He has no new complaint. OBJECTIVE: The patient is in good behavioral control. He has poor insight about his condition. He does tolerate his medicines well. ASSESSMENT: Alcohol-related dementia. PLAN: Current medicines have been reviewed and will be maintained. Long-term prognosis is guarded. TRANSINT:[id number] Voice Confirmation ID: [id number] DOCUMENT ID: [id number] KIET ROLDAN MD at 1141 CC: [id number] DICTATION DATE: 01/08/19 1242 TECHNICAL MAINTENANCE TECHNICIAN: 01/08/19 1328 ADM IN [place] [id number] [place] [address]
--- NOTE | 2019-01-09 12:12 | NUR ---
RECEIVED PT IN DINING ROOM FOR B'FAST, ALERT, CALM, COOPERATIVE. REQUIRES SUPERVISION AT MEALTIME DUE TO PATIENTS PLAYING WITH HIS FOOD AND MAKING A MESS. MEDS ADMIN PER ORDERS WITH COMPLETE MED COMPLIANCE NOTED. COOPERATIVE WITH POC. CONT POC DIRECTED.
[2019-01-09 21:15] VITALS: BP 140/85
--- NOTE | 2019-01-09 22:47 | NUR ---
RECIEVED IN DAYROOM. SITTING IN WHEELCHAIR. CALM AND COOPERATIVE WITH CARE AND ASSESSMENT. NO SIGNS OF AGGRESSION. REDIRECT AND REORIENT NEEDED. RESTING IN BED WITH EYES CLOSED AT THIS TIME. CONTINUE PLAN OF CARE
[2019-01-10 07:00] VITALS: BP 119/74
--- NOTE | 2019-01-10 12:29 | NUR ---
PATIENT CALM, COOPERATIVE, PLEASANT MOOD, CONFUSED. MEDS ADMIN PER ORDERS WITH COMPLETE MED COMPLIANCE NOTED. COOPERATIVE WITH PLAN OF CARE. CONT POC DIRECTED.
--- NOTE | 2019-01-10 12:30 | NUR ---
NO AGGRESSION NOTED.
--- NOTE | 2019-01-10 15:34 | PN ---
PATIENT:WALT GONCALVES MEDICAL RECORD: [id number] LOCATION:SARAH ReisJoellenMarisol ADMISSION DATE: 01/04/19 PROGRESS NOTE DATE OF SERVICE: 01/09/2019 SUBJECTIVE: The patient's case was discussed with staff. He has no new complaint. OBJECTIVE: The patient is in good behavioral control with poor insight about his condition. He does tolerate his medicines well. ASSESSMENT: No change in diagnoses. PLAN: Current medicines have been reviewed and will be maintained. Long-term prognosis is guarded. TRANSINT:[id number] Voice Confirmation ID: [id number] DOCUMENT ID: [id number] KIET ROLDAN MD at 1534 CC: [id number] DICTATION DATE: 01/09/19 1157 LINING CEMENTER: 01/09/19 1514 ADM IN [place] [address] [place] [address]
--- NOTE | 2019-01-10 21:56 | NUR ---
RECEIVED IN HALLWAY. SITTING QUIETLY IN HIS WHELLCHAIR WITH PEERS AT HIS SIDE. CA;M AND COOPERATIVE WITH CARE AND ASSESSMENT. NO SIGNS OF AGGRESSION. REDIRECT AND REORIENT NEEDED. RESTING IN BED WITH EYES CLOSED AT THIS TIME. CONTINUE PLAN OF CARE
[2019-01-10 22:28] VITALS: BP 124/76
[2019-01-11 08:19] VITALS: BP 118/74
--- NOTE | 2019-01-11 14:43 | NUR ---
PATIENT IS AWAKE AND ALERT, WITH CONFUSION NOTED. CALM AND COOPERATIVE WITH CARE AND ASSESSMENT. NO AGGRESSION NOTED. REDIRECT AND REORIENT NEEDED. MEDICATION COMPLIANT. WILL CONTINUE PLAN OF CARE.
--- NOTE | 2019-01-11 14:50 | PN ---
PATIENT:WALT GONCALVES MEDICAL RECORD: [id number] LOCATION:SARAH ReisJoellen112 ADMISSION DATE: 01/04/19 PROGRESS NOTE DATE OF SERVICE: 01/10/2019 SUBJECTIVE: The patient's case was discussed with staff. He has no new complaint. OBJECTIVE: The patient is in good behavioral control, but more withdrawn today than usual. He did not receive p.r.n. medication last night, so I am not sure how to account for this except perhaps the patient is just not having a good day today. ASSESSMENT: No change in diagnoses. PLAN: I am going to check a Dilantin level on this patient, and once he is therapeutic on Dilantin, I am going to begin tapering his Keppra. TRANSINT:[id number] Voice Confirmation ID: [id number] DOCUMENT ID: [id number] KIET ROLDAN MD at 1450 CC: [id number] DICTATION DATE: 01/10/19 1618 VINYL HANGER: 01/10/19 1705 ADM IN [place] [id number] [place] [address]
[2019-01-11 20:17] VITALS: BP 122/74
--- NOTE | 2019-01-11 20:18 | NUR ---
RECEIVED IN DAYROOM. SITTING IN WHEELCHAIR, WATCHING TV. CALM AND COOPERATIVE WITH CARE AND ASSESSMENT. NO SIGNS OF AGGRESSION. REDIRECT AND REORIENT NEEDED. CONTINUES TO SIT QUIETLY WATCHING TV. CONTINUE PLAN OF CARE
--- NOTE | 2019-01-11 21:21 | NUR ---
RECEIVED IN DAYROOM. SITTING IN WHEELCHAIR WATCHING TV. CALM AND COOPERATIVE WITH CARE AND ASSESSMENT. NO SIGNS OF AGGRESSION. REDIRECT AND REORIENT NEEDED. RESTING IN BED WITH EYES OPEN AT THIS TIME. CONTINUE PLAN OF CARE
--- NOTE | 2019-01-12 07:30 | NUR ---
PT IS AWAKE AND ALERT. CALM AND COOPERATIVE WITH ASSESSMENT. REDIRECT AND REORIENT NEEDED. MED COMPLIANT. FALL PRECAUTIONS IN PLACE. WILL CPOC.
[2019-01-12 09:00] VITALS: BP 119/70
--- NOTE | 2019-01-12 16:41 | PN ---
PATIENT:WALT GONCALVES MEDICAL RECORD: [id number] LOCATION:SARAH Horton ADMISSION DATE: 01/04/19 PROGRESS NOTE DATE OF SERVICE: 01/11/2019 SUBJECTIVE: The patient's case was discussed with staff. He has no new complaint. OBJECTIVE: The patient denies intent to harm himself or others. He is tolerating his medicines well. ASSESSMENT: Alcohol-related dementia. PLAN: The patient has shown improvement. I anticipate he can be transitioned back to the care home soon. TRANSINT:[id number] Voice Confirmation ID: [id number] DOCUMENT ID: [id number] KIET ROLDAN MD at 1641 CC: [id number] DICTATION DATE: 01/11/19 152 BRANCH ASSOCIATE TELLER: 01/11/19 194 ADM IN [place] [address] [place] [address]
--- NOTE | 2019-01-12 23:03 | NUR ---
B.) Patient is alert and oriented to self. He is preoccupied with the letter D and the calendar located on the day room. I.) Provided PM medications. R.) Compliant with all medications. P.) Continue Plan of Care
[2019-01-13 10:47] VITALS: BP 116/75
--- NOTE | 2019-01-13 12:24 | NUR ---
RECEIVED PATIENT IN DINING ROOM FOR B'FAST, ALER5T, CALM, COOPERATIVE, FLAT AFFECT. MEDS ADMIN PER ORDERS WITH COMPLETE MED COMPLIANCE NOTED. COOPERATIVE WITH GROUP ACTIVITY. CONT POC DIRECTED.
--- NOTE | 2019-01-13 12:37 | NUR ---
Team treatment reviewe (nutrition): Diet: ADA consistent CHO PO Intake ~74% average of last 9 meals +BM Wt: 203# RDN following.
--- NOTE | 2019-01-13 15:43 | PN ---
PATIENT:WALT GONCALVES MEDICAL RECORD: [id number] LOCATION:SARAH Castro112 ADMISSION DATE: 01/04/19 PROGRESS NOTE DATE OF SERVICE: 01/12/2019 SUBJECTIVE: The patient's case was discussed with staff. He has no new complaint. OBJECTIVE: The patient denies intent to harm himself or others. He is tolerating his medicines well. ASSESSMENT: Alcohol-related dementia. PLAN: The patient is going to have another Dilantin level checked and I am going to begin tapering him off of Lyrica. TRANSINT:[id number] Voice Confirmation ID: [id number] DOCUMENT ID: [id number] KIET ROLDAN MD at 1543 CC: [id number] DICTATION DATE: 01/12/191718 SENIOR GAMES TECHNICIAN: 01/12/192019 ADM IN [facility] [address] [place] [address]
[2019-01-13 20:08] VITALS: BP 128/86
--- NOTE | 2019-01-13 23:47 | NUR ---
B.) PATIENT IS ALERT AND ORIENTED TO SELF ONLY. HE IS OVERLY SEXUAL WITH STAFF AND PEERS. HE STATES THAT HE WANTS THEM TO COME TO HIS ROOM AT NIGHT. I.) REDIRECT AND REORIENT NEEDED. INFORMED HIM THAT HIS BEHAVIOR IS INAPPROPRIATE AND WILL NOT BE TOLERATED. R.) PATIENT ACKNOWLEDGES HIS BEHAVIOR INAPPROPRIATE. WILL CONTINUE TO MONITOR. P.) CONTINUE PLAN OF CARE
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
--- NOTE | 2019-01-14 10:02 | NUR ---
RECEIVED PT IN DINING ROOM FOR B'FAST, ALERT, CALM, COOPERATIVE. SEXUALLY INAPPROPRIATE AT TIMES WITH FEMALE STAFF AND FEMALE PATIENTS. MEDS ADMIN PER ORDERS WITH COMPLETE MED COMPLIANCE NOTED. CONT POC DIRECTED.
[2019-01-14 10:23] VITALS: BP 120/73
--- NOTE | 2019-01-14 11:59 | PN ---
PATIENT:WALT GONCALVES MEDICAL RECORD: [id number] LOCATION:GloriaGOMEZLinn Castro112 ADMISSION DATE: 01/04/19 PROGRESS NOTE DATE OF SERVICE: 01/13/2019 SUBJECTIVE: The patient's case was discussed with staff. He has no new complaint. OBJECTIVE: The patient is in good behavioral control with limited insight about his situation. He is tolerating his medicines well. I am going to continue tapering his Keppra and will increase the Dilantin until he is therapeutic. TRANSINT:[id number] Voice Confirmation ID: [id number] DOCUMENT ID: [id number] KIET ROLDAN MD at 1159 CC: [id number] DICTATION DATE: 01/13/19 1555 OPERATING ROOM ASSISTANT: 01/13/19 192 ADM IN [facility] [address] [place] [address]
[2019-01-14 21:27] VITALS: BP 140/79
--- NOTE | 2019-01-14 21:50 | NUR ---
PATIENT IS CONFUSED, HAS TO BE REDIRECTED, FLAT, LABILE, COMPLIANT WITH MEDS. WILL FOLLOW POC
[2019-01-15 07:35] VITALS: BP 130/75
--- NOTE | 2019-01-15 08:00 | NUR ---
B) The patient is calm and pleasant this am, he has not shown any aggression this am. The patient is oriented to self only. He is in a w/c and he can self propel a short distance. I) Provide prescribed meds. R) The patient is compliant with meds. P) Continue POC.
--- NOTE | 2019-01-15 11:59 | PN ---
PATIENT:WALT GONCALVES MEDICAL RECORD: [id number] LOCATION:SARAH GloriaMarisol ADMISSION DATE: 01/04/19 PROGRESS NOTE DATE OF SERVICE: 01/14/2019 SUBJECTIVE: The patient's case was discussed with staff. He has no new complaint. OBJECTIVE: The patient has been significantly agitated today. I am suspecting this is related to my tapering of his Klonopin, which I am going to cease doing. He has a history of alcoholism. I suspect he is accustomed to having something that relieves anxiety and I think the relative risks and benefit of the scheduled Klonopin is acceptable. He is after all in a longterm. He does not have free access to the medication and he does not have access to alcohol. He also is nonambulatory, so they are not any issues with falling. TRANSINT:[id number] Voice Confirmation ID: [id number] DOCUMENT ID: [id number] KIET ROLDAN MD at 1159 CC: [id number] DICTATION DATE: 01/14/19 1209 GLOVE MACHINE OPERATOR: 01/14/19 1319 ADM IN [facility] [address] [place] [id number]
--- NOTE | 2019-01-15 21:49 | NUR ---
PATIENT IS NOT SHOWING ANY AGRESSIVENESS, COMPLIANT WITH MEDS, MAKES NEEDS KNOWN, GETTING ALONG WITH OTHERS.
[2019-01-15 21:54] VITALS: BP 142/85
[2019-01-16 08:01] VITALS: BP 121/76
--- NOTE | 2019-01-16 09:56 | NUR ---
PATIENT IS ALERT AND ORIENTED TO SELF ONLY. PLESANT WITH STAFF AND PEERS. NO BEHAVIORS NOTED. MED COMPLIANT. PT IS IN WHEELCHAIR WITH CHAIR ALARM IN PLACE AND ACTIVE. PT DOES WEAR A HELMET TO PROTECT HEAD. PT IS INCONTINENT AND REQUIRES ASSISTANCE WITH TOILETING. CAN PROPRELL SELF SHORT DISTANCE. WILL CONT PLAN OF CARE.
--- NOTE | 2019-01-16 10:00 | NUR ---
CONSULT FOR A SWALLOW STUDY ORDERED DUE TO COUGHING ON WATER AT TIMES.
--- NOTE | 2019-01-16 12:20 | PN ---
PATIENT:WALT GONCALVES MEDICAL RECORD: [id number] LOCATION:SARAH ReisJoellenMarisol ADMISSION DATE: 01/04/19 PROGRESS NOTE DATE OF SERVICE: 01/14/2019 SUBJECTIVE: The patient's case was discussed with staff. He has no new complaint. OBJECTIVE: The patient is still running a sub therapeutic Dilantin level. I am going to increase the dose of that medication slightly. His long-term Roger prognosis is guarded. I will taper the taper the Keppra further. TRANSINT:[id number] Voice Confirmation ID: [id number] DOCUMENT ID: [id number] KIET ROLDAN MD at 1220 CC: [id number] DICTATION DATE: 01/15/19 1233 HEALTH TEACHER: 01/15/19 2320 ADM IN [place] [address] [place] [address]
--- NOTE | 2019-01-16 18:07 | NUR ---
NO BEHAVIORS NOTED THIS SHIFT. PT DID RECIEVE A SHOWER AND TOLERATED WELL. CHAIR ALARM IN PLACE AND ACTIVE. WILL CONT PLAN OF CARE.
[2019-01-16 20:47] VITALS: BP 191/68
--- NOTE | 2019-01-16 22:23 | NUR ---
RECEIVED IN DAYROOM. SITTING IN WHEELCHAIR WATCHING TV. CALM AND COOPERATIVE WITH CARE AND ASSESSMENT. NO SIGNS OF AGGRESSION. REDIRECT AND REORIENT NEEDED, RESTING IN BED WITH EYES CLOSED AT THIS TIME. CONTINUE PLAN OF CARE.
[2019-01-17 07:00] VITALS: BP 131/78
--- NOTE | 2019-01-17 12:13 | NUR ---
PATIENT IS AWAKE AND ALERT. CALM AND COOPERATIVE WITH CARE AND ASSESSMENT. NO AGGRESSION NOTED. MEDICATION COMPLIANT. FALL PRECAUTIONS IN PLACE. REDIRECT AND REORIENT NEEDED. WILL CONTINUE PLAN OF CARE.
--- NOTE | 2019-01-17 14:45 | PN ---
PATIENT:WALT GONCALVES MEDICAL RECORD: [id number] LOCATION:SARAH Horton ADMISSION DATE: 01/04/19 PROGRESS NOTE DATE OF SERVICE: 01/16/2019 SUBJECTIVE: The patient's case was discussed with staff. He has no new complaint. OBJECTIVE: The patient has not been aggressive. He is tolerating his current medicines well. I plan to continue tapering him off of Keppra and will do so fully once the Dilantin becomes fully therapeutic. His long-term prognosis is guarded. I anticipate he can be transitioned out of the hospital soon. TRANSINT:[id number] Voice Confirmation ID: [id number] DOCUMENT ID: [id number] KIET ROLDAN MD at 1445 CC: [id number] DICTATION DATE: 01/16/19 1228 BOILER INSPECTOR: 01/16/19 1408 ADM IN [facility] [address] [place] [address]
--- NOTE | 2019-01-17 21:15 | NUR ---
RECEIVED IN DAYROOM. RESTING IN CHAIR WITH PEERS BY HIS SIDE. SOCIALIZING AT TIMES. CALM AND COOPERATIVE WITH CARE AND ASSESSMENT. NO SIGNS OF AGGRESSION. REDIRECT AND REORIENT NEEDED. RESTING IN BED EYES OPEN AT THIS TIME. CONTINUE PLAN OF CARE.
[2019-01-17 22:23] VITALS: BP 118/80
[2019-01-18 08:30] VITALS: BP 124/74
--- NOTE | 2019-01-18 10:00 | NUR ---
RECEIVED PATIENT IN DINING ROOM FOR B'FAST, ALERT, COOPERATIVE, QUIET. MEDS ADMIN PER ORDERS WITH COMPLETE MED COMPLIANCE NOTED. SWALLOWS MEDS WHOLE WITHOUT DIFFICULTY. COOPERATIVE WITH PLAN OF CARE. CONT POC INDUDING EARMA.
--- NOTE | 2019-01-18 11:14 | PN ---
PATIENT:WALT GONCALVES MEDICAL RECORD: [id number] LOCATION:SARAH Castro112 ADMISSION DATE: 01/04/19 PROGRESS NOTE DATE OF SERVICE: 01/17/2019 SUBJECTIVE: The patient is significantly more comfortable and behaviorally in control than he was a few days ago. I am going to order another Dilantin level and I am anticipating it is going to be either therapeutic or very close to therapeutic. In anticipation of this, I am going to continue to taper his Keppra. ASSESSMENT: No change in diagnoses. PLAN: As above. Medication changes will be made. Supportive and educational interventions were also made. I anticipate the patient can be [facility]ed [facility] the [facility]. TRANSINT:[id number] Voice Confirmation ID: [id number] DOCUMENT ID: [id number] KIET ROLDAN MD at 1114 CC: [id number] DICTATION DATE: 01/17/19 1537 MEMBER OF TECHNICAL STAFF: 01/17/19 1718 ADM IN [place] [address] [place] [id number]
[2019-01-18] MEDS ORDERED: DONEPEZIL HCL5 MG PO (11:48)
[2019-01-18] MEDS ORDERED: KLONOPIN0.5 MG PO (11:49)
[2019-01-18] MEDS ORDERED: DILANTIN100 MG PO (11:49)
[2019-01-18 20:23] VITALS: BP 117/78
--- NOTE | 2019-01-18 21:18 | NUR ---
RECEIVED IN DAYROOM. RESTING IN A CHAIR WITH PEERS AT HIS SIDE. CALM AND COOPERATIVE WITH CARE AND ASSESSMENT. NO SIGNS OF AGGRESSION. REDIRECT AND REORIENT NEEDED. CONTINUES TO REST QUIETLY IN RECLINER. CONTINUE PLAN OF CARE
--- NOTE | 2019-01-19 10:34 | NUR ---
RECEIVED PT IN DINING ROOM AT 'FAST, ALERT, CALM, COOPERATIVE, AWAITING DISCHARGE LATER THIS SHIFT. MEDS ADMIN PER ORDERS WITH COMPLETE MED COMPLIANCE NOTED. COOPERATIVE WITH PLAN OF CARE. PATIENT TO DISCHARGE TO LTC FACILITY THIS SHIFT.
[2019-01-19 10:59] VITALS: BP 124/73
--- NOTE | 2019-01-19 11:45 | NUR ---
PERSONAL BELONGINGS RETURNED TO PATIENT, DISCHARGE PACKET GIVEN TO [facility]P PERSONNEL. PT DENIES PAIN, NO S/S DISTRESS. DISCHARGED TO THE [facility] IN CARE OF RI STAFF. REPORT PHONED BY CHARGE NURSE.
--- NOTE | 2019-01-19 15:32 | PN ---
PATIENT:WALT GONCALVES MEDICAL RECORD: [id number] LOCATION:SARAH Horton ADMISSION DATE: 01/04/19 PROGRESS NOTE DATE OF SERVICE: 01/18/2019 SUBJECTIVE: The patient's case was discussed with staff. He has no new complaint. OBJECTIVE: The patient denies intent to harm himself or others. He is tolerating his medicines well. ASSESSMENT: No change in diagnoses. PLAN: Brief supportive and educational interventions were made. Long-term prognosis is guarded. The patient will be transitioned out of the hospital and back to the half-way tomorrow if this level of improvement continues. TRANSINT:[id number] Voice Confirmation ID: [id number] DOCUMENT ID: [id number] KIET ROLDAN MD at 1532 CC: [id number] DICTATION DATE: 01/18/19 1143 DORR OPERATOR: 01/18/19 1158 DIS IN 01/19/19 [facility] [address] [place] [address]
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
== END 2019-01-19 11:45 | DRG 897 ==
LOC: D.PSYCH 19:13
PROVIDERS: ADMIT Psychiatry & Neurology Psychiatry; ATTEND Psychiatry & Neurology Psychiatry
DX: F10.97 Alcohol use, unspecified with alcohol-induced persisting dementia (principal); E11.9 Type 2 diabetes mellitus without complications; I10 Essential (primary) hypertension; G40.909 Epilepsy, unspecified, not intractable, without status epilepticus; E55.9 Vitamin D deficiency, unspecified; R13.10 Dysphagia, unspecified; K59.09 Other constipation; F51.04 Psychophysiologic insomnia; F41.8 Other specified anxiety disorders; Z87.820 Personal history of traumatic brain injury; R46.89 Other symptoms and signs involving appearance and behavior

== ENCOUNTER 2019-02-07 05:42 | Emergency (ER) | payer MEDICARE, MEDICAID ==
[~2019-02-07] VITALS: Ht 167.6 cm; Wt 81.6 kg
[~2019-02-07 05:42] MED LIST changes: +BUSPAR10 MG PO; +DILANTIN100 MG PO; +DONEPEZIL HCL5 MG PO; +GLUCOTROL ER2.5 MG PO; +NOVOLOG100 UNIT/1 SC; +REMERON15 MG PO
[2019-02-07 05:47] VITALS: Ht 167.6 cm; Wt 81.6 kg
[2019-02-07 07:05] VITALS: BP 137/77
== END 2019-02-07 07:22 ==
LOC: D.ER 05:42
DX: S09.90XA Unspecified injury of head, initial encounter (principal); W18.30XA Fall on same level, unspecified, initial encounter; Y93.89 Activity, other specified; Y92.89 Other specified places as the place of occurrence of the external cause

== ENCOUNTER 2019-02-13 11:32 | Emergency (ER) | payer MEDICARE, MEDICAID ==
[~2019-02-13] VITALS: Ht 167.6 cm; Wt 90.9 kg
[2019-02-13 11:34] VITALS: Ht 167.6 cm; Wt 90.9 kg
[2019-02-13 12:15] LABS: BASOPHILS 0.2 % (0-2); EOSINOPHILS 0.6 % (0-7); HEMATOCRIT 48.9 % (42.0-54.0); HEMOGLOBIN 16.6 g/dL (13.5-17.5); IMMATURE GRANULOCYTES 0.2 % (0-5); LYMPHOCYTES 32.5 % (15-50); MCH 31.6 pg (26.0-34.0); MCHC 33.9 g/dL (31.0-37.0); MEAN PLATELET VOLUME 10.5 fL (7.4-10.4); MONOCYTES 6.7 % (2-11); NEUTROPHILS 59.8 % (40-80); PLATELET COUNT 159 10x3/uL (130-400); RBC 5.26 10x6/uL (4.20-6.10); RDW 13.6 % (11.5-14.5); WBC 4.8 10x3/uL (4.8-10.8)
[2019-02-13 12:23] LABS: APTT 21.3 SECONDS (22.8-39.4); INR 1.08 (0.85-1.17); PROTIME 13.5 SECONDS (11.6-15.0)
[2019-02-13 12:30] LABS: ALBUMIN 3.7 g/dL (3.4-5.0); ALKALINE PHOSPHATASE 170 U/L (46-116); ALT (SGPT) 8 U/L (10-68); BILIRUBIN - TOTAL 0.27 mg/dL (0.2-1.3); CALC OSMOLALITY 284 mosm/kg (275-300); CALCIUM 8.7 mg/dL (8.5-10.1); CHLORIDE - SERUM 104 mmol/L (98-107); CREATININE - SERUM 0.9 mg/dL (0.6-1.3); GLUCOSE 172 mg/dL (74-106); POTASSIUM - SERUM 4.2 mmol/L (3.5-5.1); PROTEIN - SERUM 7.6 g/dL (6.4-8.2); SODIUM 139 mmol/L (136-145); UREA NITROGEN 20 mg/dL (7-18); eGFR NON AFRICAN AMERICAN 89 mL/min (90-120)
[2019-02-13 12:42] LABS: CREATINE KINASE 51 UL (21-232); THYROID STIMULATING HORMONE 1.11 uIU/mL (0.36-3.74)
[2019-02-13 12:44] LABS: TROPONIN-I < 0.017 ng/mL (0.000-0.060)
[2019-02-13 15:39] VITALS: BP 152/90
== END 2019-02-13 15:41 ==
LOC: D.ER 11:32
PROVIDERS: Family Medicine
DX: Z87.820 Personal history of traumatic brain injury (principal); W18.30XA Fall on same level, unspecified, initial encounter; X58.XXXA Exposure to other specified factors, initial encounter; Y93.89 Activity, other specified; Y92.89 Other specified places as the place of occurrence of the external cause

== ENCOUNTER → 2019-02-22 12:25 | Outpatient (CLI) | payer MEDICARE, MEDICAID ==
[2019-02-13 11:34] VITALS: BMI 32.3
[~2019-02-22 12:25] MED LIST changes: +CLEOCIN HCL300 MG PO; +FLORAJEN3 CAPS460 MG PO; +GUAIFENESI100 MG/5 M PEG; +LEVOFLOXACIN500 MG PO; +MEDROL4 MG PO
== END | disposition home or self-care (01) ==
LOC: D.RAD 02-21 13:00
PROVIDERS: ATTEND Internal Medicine Geriatric Medicine
DX: R13.10 Dysphagia, unspecified (principal)

== ENCOUNTER 2019-02-24 10:24 | Inpatient (IN) | payer MEDICARE, MEDICAID ==
[~2019-02-24] VITALS: Ht 167.6 cm; Wt 79.4 kg
[~2019-02-24 10:24] MED LIST changes: -CLEOCIN HCL300 MG PO; -FLORAJEN3 CAPS460 MG PO; -GUAIFENESI100 MG/5 M PEG; -LEVOFLOXACIN500 MG PO; -MEDROL4 MG PO
[2019-02-24] MEDS ORDERED: MEDROL4 MG PO (10:34)
[2019-02-24 11:32] LABS: BASOPHILS 0.2 % (0-2); EOSINOPHILS 0.2 % (0-7); HEMATOCRIT 54.1 % (42.0-54.0); HEMOGLOBIN 18.5 g/dL (13.5-17.5); IMMATURE GRANULOCYTES 0.3 % (0-5); LYMPHOCYTES 24.2 % (15-50); MCH 32.2 pg (26.0-34.0); MCHC 34.2 g/dL (31.0-37.0); MCV 94.1 fL (80.0-100.0); MEAN PLATELET VOLUME 10.2 fL (7.4-10.4); MONOCYTES 4.8 % (2-11); NEUTROPHILS 70.3 % (40-80); PLATELET COUNT 176 10x3/uL (130-400); RBC 5.75 10x6/uL (4.20-6.10); RDW 14.2 % (11.5-14.5)
[2019-02-24 11:45] LABS: ALBUMIN 3.8 g/dL (3.4-5.0); ANION GAP 17.9 mmol/L (8-16); BILIRUBIN - TOTAL 0.44 mg/dL (0.2-1.3); CALCIUM 9.1 mg/dL (8.5-10.1); CARBON DIOXIDE 31.1 mmol/L (21.0-32.0); CREATININE - SERUM 1.1 mg/dL (0.6-1.3); PROTEIN - SERUM 7.6 g/dL (6.4-8.2)
[2019-02-24 12:02] LABS: PHENYTOIN (DILANTIN) 40.5 ug/mL (10.0-20.0)
--- NOTE | 2019-02-24 12:27 | NUR ---
CALLED 1310 TO SEND FLUIDS NOY.
--- NOTE | 2019-02-24 13:28 | MORECARE ---
CASE MANAGEMENT DISCHARGE SUMMARY PATIENT: WALT GONCALVES VAN UNIT: [id number] ADM DATE: 02/24/19 AGE: 68 : 49 SEX: M ROOM/BED: D.2226 AUTHOR: CLARENCE GARCÍA PHYSICIAN: REFERRING PHYSICIAN: KATTY BYERS MD DATE OF SERVICE: 02/24/19 Discharge Plan Patient Name: WALT GONCALVES [facility] [facility] 1950 Planned Disposition: SNF w Planned Readmission Anticipated Discharge Date: 02/28/19 Discharge Date: Expected LOS: 4 Initial Reviewer: [id number] Initial Review Date: 02/24/2019 Generated: 02/24/19 2:27 pm DCPIA - Discharge Planning Initial Assessment Updated by [email or web address]: Jannie Hernandez on 02/24/19 1:25 pm * Is the patient Alert and Oriented? No * How many steps to enter\exit or inside your home? None * PCP Dr. Sandoval * Pharmacy [facility] * Preadmission Environment [facility] * Facility Name [facility] - Resident * ADLs Total Dependent * Equipment Wheelchair * List name and contact numbers for known caregivers / representatives who currently or will assist patient after discharge: Ximena TATE (daughter) [phone] * Verbal permission to speak to the caregivers and representatives has been obtained from the patient. Yes * Additional services required to return to the preadmission environment? No * Can the patient safely return to the preadmission environment? Yes * Has this patient been hospitalized within the prior 30 days at any hospital? No Patient Name: WALT GONCALVES Page [id number] at 1328 All edits/amendments must be made on the electronic document DICTATION DATE: 02/24/19 1327 MANAGER ENGINE: LYNSEY 02/24/19 1327 RPT#: [id number] DC DATE: STATUS: ADM IN [facility] [address] [place] [address] END OF REPORT
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
[2019-02-24 14:09] VITALS: BP 132/95
--- NOTE | 2019-02-24 14:11 | NUR ---
CALLED REPORT TO RN. PATIENT TO BE ADMITTED TO ROOM 9271
[2019-02-24 15:53] VITALS: BP 149/92
[2019-02-24 16:52] VITALS: BP 149/96; BMI 28.3
[2019-02-24 17:47] LABS: ANION GAP 15.8 mmol/L (8-16); CALCIUM 8.9 mg/dL (8.5-10.1); CARBON DIOXIDE 30.2 mmol/L (21.0-32.0); CREATININE - SERUM 1.1 mg/dL (0.6-1.3)
--- NOTE | 2019-02-24 18:00 | NUR ---
PATIENT UNABLE TO ANSWER SUICIDE SCREENING AT THIS TIME. DISORIENTED AND CONFUSED. NO FAMILY AT BS.
--- NOTE | 2019-02-24 19:00 | NUR ---
BEDSIDE REPORT RECEIVED AND CARE OF PT ASSUMED. PT LYING IN SUPINE POSITION WITH EYES CLOSED. IV TO RIGHT FA PATENT WITH D5, 0.2 NS INFUSING AT 75 ML/HR. TELEMETRY IN PLACE AND READING 86 SR AT THIS ASSESSMENT.
--- NOTE | 2019-02-24 19:15 | NUR ---
PT CHANGED DUE TO INCONTINCE. YELLOW GOWN AND GRIPPER SOCKS PLACED PER FALL PROTOCOL. PT TURNED PER TURN SCHEDULE. BED ALARM IN USE FOR FALL PRECAUTIONS.
--- NOTE | 2019-02-24 19:45 | NUR ---
HS MEDICATIONS GIVEN. PT IS NPO PER ORDER. SIGNAGE PLACED ON DOOR.
[2019-02-24 19:54] VITALS: BP 154/99
[2019-02-25] VITALS: BP 164/92
[2019-02-25 04:00] VITALS: BP 167/100
[2019-02-25 06:21] LABS: BASOPHILS 0.1 % (0-2); EOSINOPHILS 1.1 % (0-7); HEMATOCRIT 51.1 % (42.0-54.0); HEMOGLOBIN 16.9 g/dL (13.5-17.5); IMMATURE GRANULOCYTES 0.4 % (0-5); LYMPHOCYTES 25.5 % (15-50); MCH 31.4 pg (26.0-34.0); MCHC 33.1 g/dL (31.0-37.0); MEAN PLATELET VOLUME 10.3 fL (7.4-10.4); MONOCYTES 6.8 % (2-11); NEUTROPHILS 66.1 % (40-80); PLATELET COUNT 145 10x3/uL (130-400); RBC 5.38 10x6/uL (4.20-6.10); RDW 14.3 % (11.5-14.5); WBC 7.5 10x3/uL (4.8-10.8)
[2019-02-25 06:45] LABS: INR 1.37 (0.85-1.17); PROTIME 16.3 SECONDS (11.6-15.0)
[2019-02-25 06:54] LABS: ANION GAP 10.1 mmol/L (8-16); CALCIUM 8.4 mg/dL (8.5-10.1); CARBON DIOXIDE 36.7 mmol/L (21.0-32.0); CREATININE - SERUM 1.2 mg/dL (0.6-1.3); MAGNESIUM - SERUM 2.3 mg/dL (1.8-2.4); PHOSPHOROUS 3.6 mg/dL (2.5-4.9); POTASSIUM - SERUM 3.8 mmol/L (3.5-5.1); THYROID STIMULATING HORMONE 0.97 uIU/mL (0.36-3.74)
[2019-02-25 08:01] VITALS: BP 148/84
--- NOTE | 2019-02-25 09:00 | NUR ---
PT AWAKE AND NON RSPONSIVE. LUNGS CTA. NO PERIPHERAL EDEMA. PT NPO PENDING G-TUBE PACEMENT. BOWEL SOUNDS NOTED WITH ABDOMEN SOFT.RESP EVEN AND UNLABORED WITH CAP REFILL LESS THAN 3 SEC. REPOSITIONED FOR COMFORT WITH PERICARE GIVEN.
--- NOTE | 2019-02-25 11:48 | NUR ---
PT PRE-OPED AND LEFT FOR SURGERY.
--- NOTE | 2019-02-25 12:42 | NUR ---
1230 PT'S GUAZE UNDER PEG TUBE IS SATURATED WITH BLOOD. CHANGED DRESSING.
--- NOTE | 2019-02-25 12:44 | NUR ---
1237 NEW DRESSING IS BECOMING SATURATED WITH BRIGHT RED BLOOD. DR. MARVIN MORENO.
--- NOTE | 2019-02-25 12:45 | NUR ---
[address] WONG ABOUT BRIGHT RED BLEEDING AND GUAZE SATURATION AROUND PEG TUBE. ON HIS WAY TO GI LAB. VSS B/P 146/96 HR 89 R 16 O2 SAT 94%
[2019-02-25 12:58] VITALS: Ht 167.6 cm; Wt 79.4 kg
[2019-02-25 13:00] VITALS: BP 156/93
--- NOTE | 2019-02-25 13:14 | NUR ---
[address] WONG PLACED 3 STITCHES AROUND PEG TUBE TO STOP BLEEDING.
--- NOTE | 2019-02-25 13:15 | NUR ---
1308 AREA AROUND PEG TUBE CLEANSED WITH HIBICLENS AND RINSED OFF. BIOPATCH APPLIED AROUND PEG TUBE. NO FURTHER BLEEDING NOTED. PT'S GOWN AND LINEN CHANGED PRIOR TO TRANSFER BACK TO ROOM 2226.
[2019-02-25 16:41] VITALS: BP 146/99
[2019-02-25 18:13] LABS: CALC OSMOLALITY 309 mosm/kg (275-300); CALCIUM 8.1 mg/dL (8.5-10.1); CARBON DIOXIDE 34.4 mmol/L (21.0-32.0); CHLORIDE - SERUM 114 mmol/L (98-107); CREATININE - SERUM 0.9 mg/dL (0.6-1.3); GLUCOSE 132 mg/dL (74-106); POTASSIUM - SERUM 3.6 mmol/L (3.5-5.1); SODIUM 154 mmol/L (136-145); UREA NITROGEN 22 mg/dL (7-18); eGFR NON AFRICAN AMERICAN 89 mL/min (90-120)
--- NOTE | 2019-02-25 19:00 | NUR ---
BEDSIDE REPORT RECEIVED AND CARE OF PT ASSUMED. PT LYING IN MID LYLE'S POSITION, WITH BED AT 30 DEGREES PER ORDER. SCD'S IN PLACE ON BLE. PEG TUBE PATENT WITH JEVITY 1.2 INFUSING AT 20 ML/HR. BED ALARM IN USE FOR SAFETY.
[2019-02-25 20:00] VITALS: BP 130/83
--- NOTE | 2019-02-25 20:40 | NUR ---
HS MEDICATIONS GIVEN. PO MEDS GIVEN VIA PEG TUBE. FLUSHED TUBE WITH 30 ML WATER BEFORE AND AFTER MEDS.
[2019-02-26] VITALS: BP 108/84
--- NOTE | 2019-02-26 00:47 | NUR ---
CHECKED RESIDUAL IN PEG= 5 ML AT THIS TIME. INCREASED FEEDING RATE TO 30 ML/HR PER SCHEDULE TO GOAL OF 60 ML/HR...INCREASING BY 10 EVERY 8 HOURS.
[2019-02-26 04:00] VITALS: BP 140/80
--- NOTE | 2019-02-26 04:50 | NUR ---
CHANGED ALL FEEDING TUBING AND BAGS.
[2019-02-26 07:12] LABS: BASOPHILS 0.1 % (0-2); EOSINOPHILS 1.2 % (0-7); HEMOGLOBIN 15.2 g/dL (13.5-17.5); IMMATURE GRANULOCYTES 0.5 % (0-5); LYMPHOCYTES 24.4 % (15-50); MCH 31.1 pg (26.0-34.0); MCV 94.3 fL (80.0-100.0); MEAN PLATELET VOLUME 10.4 fL (7.4-10.4); MONOCYTES 6.3 % (2-11); NEUTROPHILS 67.5 % (40-80); PLATELET COUNT 122 10x3/uL (130-400); RBC 4.88 10x6/uL (4.20-6.10); RDW 13.9 % (11.5-14.5); WBC 7.7 10x3/uL (4.8-10.8)
[2019-02-26 07:32] LABS: ALBUMIN 2.7 g/dL (3.4-5.0); ANION GAP 9.4 mmol/L (8-16); BILIRUBIN - TOTAL 0.47 mg/dL (0.2-1.3); CALCIUM 8.1 mg/dL (8.5-10.1); CARBON DIOXIDE 35.2 mmol/L (21.0-32.0); CREATININE - SERUM 1.2 mg/dL (0.6-1.3); PHOSPHOROUS 3.1 mg/dL (2.5-4.9); POTASSIUM - SERUM 3.6 mmol/L (3.5-5.1); PROTEIN - SERUM 5.9 g/dL (6.4-8.2)
[2019-02-26 07:57] VITALS: BP 140/90
--- NOTE | 2019-02-26 09:00 | NUR ---
ALERT AND ABLE TO COMPREHEND WITH EXPRESSIVE APHASIA NOTED. LUNGS CTA WITH HRRR . ABDOMEN SOFT WITH PEG TUBE INTACT WITH DRESSING CHANGED. PREICARE DONE PER EACH INCONT. EPISODE AND TURNED AND REPOSITIONED FOR COMFORT. NO SEIZURE ACTIVITY NOTED.
[2019-02-26 12:58] VITALS: BP 125/79
[2019-02-26 16:07] VITALS: BP 124/81
--- NOTE | 2019-02-26 19:00 | NUR ---
BEDSIDE REPORT RECEIVED AND CARE OF PT ASSUMED. PT LYING IN LOW LYLE'S POSITION...ALERT AND TRYING TO TALK TO US. IV TO RIGHT FA PATENT WITH D5W INFUSING AT 75 ML/HR. PEG TUBE PATENT WITH JEVITY 1.2 INFUSING AT 50 ML/HR VIA FEEDING PUMP. TELEMETRY IN PLACE PER ORDER. WILL MONITOR FOR NEEDS.
[2019-02-26 19:45] VITALS: BP 113/64
--- NOTE | 2019-02-26 21:14 | NUR ---
HS MEDICATIONS GIVEN VIA PEG TUBE...FLUSHED WITH 30 ML WATER BEFORE AND AFTER MEDS.
--- NOTE | 2019-02-26 23:12 | NUR ---
ORAL CARE PERFORMED. SET UP SUCTION FOR EXCESS ORAL SECRETIONS.
[2019-02-27] VITALS (7 sets, daily range): BP systolic 105–146; BP diastolic 67–86
--- NOTE | 2019-02-27 01:08 | NUR ---
CHECKED RESIDUAL ON PEG TUBE...120 MLS AT THIS ASSESSMENT. SUSPENDED FEEDING AND WILL RE-CHECK IN 2 HOURS.
--- NOTE | 2019-02-27 03:24 | NUR ---
RE-CHECKED RESIDUAL....>5ML THIS CHECK. RE-STARTED FEEDINGS AT PREVIOUS SETTING OF 50 ML/HR.
[2019-02-27 06:08] LABS: BASOPHILS 0.1 % (0-2); EOSINOPHILS 2.8 % (0-7); HEMATOCRIT 44.3 % (42.0-54.0); HEMOGLOBIN 14.9 g/dL (13.5-17.5); IMMATURE GRANULOCYTES 0.4 % (0-5); LYMPHOCYTES 26.9 % (15-50); MCH 31.2 pg (26.0-34.0); MCHC 33.6 g/dL (31.0-37.0); MCV 92.9 fL (80.0-100.0); MEAN PLATELET VOLUME 10.3 fL (7.4-10.4); MONOCYTES 5.7 % (2-11); NEUTROPHILS 64.1 % (40-80); PLATELET COUNT 114 10x3/uL (130-400); RBC 4.77 10x6/uL (4.20-6.10); RDW 13.4 % (11.5-14.5); WBC 6.7 10x3/uL (4.8-10.8)
[2019-02-27 06:24] LABS: ALBUMIN 2.5 g/dL (3.4-5.0); ALKALINE PHOSPHATASE 129 U/L (46-116); ALT (SGPT) 13 U/L (10-68); BILIRUBIN - TOTAL 0.36 mg/dL (0.2-1.3); CALC OSMOLALITY 292 mosm/kg (275-300); CALCIUM 7.9 mg/dL (8.5-10.1); CARBON DIOXIDE 34.7 mmol/L (21.0-32.0); CHLORIDE - SERUM 106 mmol/L (98-107); CREATININE - SERUM 0.9 mg/dL (0.6-1.3); GLUCOSE 136 mg/dL (74-106); PHOSPHOROUS 3.2 mg/dL (2.5-4.9); POTASSIUM - SERUM 3.5 mmol/L (3.5-5.1); PROTEIN - SERUM 5.6 g/dL (6.4-8.2); SODIUM 146 mmol/L (136-145); eGFR NON AFRICAN AMERICAN 89 mL/min (90-120)
[2019-02-27 06:28] LABS: UREA NITROGEN 13 mg/dL (7-18)
--- NOTE | 2019-02-27 07:54 | NUR ---
RESTING WITH EYES CLOSED WITH RESP EVEN ADN UNLABORED. HOB UP AT 35 DEGREE ANGLE. PEG TUBE INTACT WITH FEEDING INFUSING AT PRESCRIBED RATE. BS NOTED AND HRRR. TELEMETRY INTACT. IVF INFUSING TO RT. F/A WITH NO S/S OF INFILTRATION NOTED. O2 2L N/C. EXPRESSIVE APASIA PRESENT BUT IS ABLE TO UNDERSTAND AND NODD APPROPRATELY TO YES AND NO QUESTIONS.
--- NOTE | 2019-02-28 01:30 | NUR ---
CHECKED PEG TUBE RESIDUAL BEFORE GIVING SCHEDULED ROBITUSSIN. RESIDUAL IS 150 CC'S AND BREATH SOUNDS ARE WET. STOPPED FEEDING AND CLAMPED TUBE. PT INCONTINENT OF URINE. CHANGE PADS AND RAISED HOB TO 40 DEGREES. WILL RESUME FEEDING LATER WHEN RESIDUAL IS WNL.
[2019-02-28 04:00] VITALS: BP 127/73
[2019-02-28 05:05] LABS: BASOPHILS 0.1 % (0-2); EOSINOPHILS 3.7 % (0-7); HEMATOCRIT 39.1 % (42.0-54.0); HEMOGLOBIN 13.3 g/dL (13.5-17.5); IMMATURE GRANULOCYTES 0.3 % (0-5); LYMPHOCYTES 29.4 % (15-50); MCH 31.1 pg (26.0-34.0); MCV 91.6 fL (80.0-100.0); MEAN PLATELET VOLUME 10.5 fL (7.4-10.4); MONOCYTES 7.4 % (2-11); NEUTROPHILS 59.1 % (40-80); PLATELET COUNT 110 10x3/uL (130-400); RBC 4.27 10x6/uL (4.20-6.10); RDW 13.1 % (11.5-14.5); WBC 6.8 10x3/uL (4.8-10.8)
[2019-02-28 05:27] LABS: ALBUMIN 2.3 g/dL (3.4-5.0); ALKALINE PHOSPHATASE 112 U/L (46-116); ALT (SGPT) 11 U/L (10-68); BILIRUBIN - TOTAL 0.36 mg/dL (0.2-1.3); CALC OSMOLALITY 292 mosm/kg (275-300); CALCIUM 7.8 mg/dL (8.5-10.1); CHLORIDE - SERUM 107 mmol/L (98-107); CREATININE - SERUM 0.9 mg/dL (0.6-1.3); GLUCOSE 141 mg/dL (74-106); PHOSPHOROUS 3.1 mg/dL (2.5-4.9); POTASSIUM - SERUM 3.4 mmol/L (3.5-5.1); PROTEIN - SERUM 5.4 g/dL (6.4-8.2); SODIUM 147 mmol/L (136-145); UREA NITROGEN 10 mg/dL (7-18); eGFR NON AFRICAN AMERICAN 89 mL/min (90-120)
[2019-02-28 08:37] VITALS: BP 131/77
[2019-02-28 12:06] VITALS: BP 125/75
--- NOTE | 2019-02-28 12:14 | MORECARE ---
CASE MANAGEMENT DISCHARGE SUMMARY PATIENT: WALT ANDREWS VAN UNIT: [id number] ADM DATE: 02/24/19 AGE: 68 : 49 SEX: M ROOM/BED: D.2226 AUTHOR: RICKY,DOC PHYSICIAN: REFERRING PHYSICIAN: KATTY BYERS MD DATE OF SERVICE: 02/28/19 Discharge Plan Patient Name: WALT ANDREWS Facility: [facility]:[place] : 1950 Planned Disposition: SNF w Planned Readmission Anticipated Discharge Date: 02/28/19 Discharge Date: Expected LOS: 4 Initial Reviewer: [id number] Initial Review Date: 02/24/2019 Generated: 02/28/19 1:13 pm DCP- Discharge Planning Updated by [email or web address]: Jannie Hernandez on 02/24/19 12:[address] DC PLAN: Resident at the [facility] ANTICIPATED DC NEEDS: Return to the [facility] BEBETO Andrews -dtr- [phone] CM called and spoke to patient's daughter/BEBETO Andrews to complete initial dc planning assessment. CM educated Ximena on the CM role and verbal consent given to complete assessment. CM verified patient's address, phone number, and emergency contact phone numbers. Patient lives at the [facility]. 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 He has been in several nursing facilities, one in [place] prior to coming to [place]. She reports he has had a PEG tube in the past and pulled it out. He is unable to ambulate and is bed/chair bound. Two weeks ago the patient was able to feed himself and had adequate po intake. She reports that two weeks ago the senior care staff was helping him get into a wheelchair and he fell back and hit his head on a window seal. She reports since that time he has had a decline in mental status and has been unable to swallow. She is unsure if he is able to still feed himself since that time. She reported she has been researching the type of dysphagia he has and she would like the physicians to really look into this. CM discussed to possibility of a peg tube. She reported she would consent to this if it is recommended. She also reports he is a FULL CODE. At discharge the patient will return to the [facility] and she feels this is a safe discharge. She reports he [facility] but they stopped it because he was not making progress. She would like to consider rehab after this hospitalization to see if he could make progress with the recent decline in his mental status and condition. CM spoke to Poonam CATALAN regarding this information. CM will continue to follow and will assist as needed with dc plans/needs. Jannie Hernandez RN, [facility] DCPIA - Discharge Planning Initial Assessment Updated by [id number]: Jannie Hernandez on 02/24/19 1:25 pm * Is the patient Alert and Oriented? No * How many steps to enter\exit or inside your home? None * PCP Dr. Sandoval * Pharmacy [facility] * Preadmission Environment Geospatial Information Technologist [facility] * Facility Name [facility] - Resident * ADLs Total Dependent * Equipment Wheelchair * List name and contact numbers for known caregivers / representatives who currently or will assist patient after discharge: Ximena TATE (daughter) [phone] * Verbal permission to speak to the caregivers and representatives has been obtained from the patient. Yes * Additional services required to return to the preadmission environment? No * Can the patient safely return to the preadmission environment? Yes * Has this patient been hospitalized within the prior 30 days at any hospital? No External Providers External Provider: [facility] Next Contact Date: Service Request Date: Service Type: Resolution: Reviewer: Comments: Last DP export: 02/24/19 12:41 pm Patient Name: WALT ANDREWS Page [id number] at 1214 All edits/amendments must be made on the electronic document DICTATION DATE: 02/28/19 1213 MOTOR POOL DRIVER: LYNSEY 02/28/19 1213 RPT#: [id number] DC DATE: STATUS: ADM IN [facility] [address] [place] [address] END OF REPORT
--- NOTE | 2019-02-28 12:28 | MORECARE ---
CASE MANAGEMENT DISCHARGE SUMMARY PATIENT: WALT ANDREWS VAN UNIT: [id number] ADM DATE: 02/24/19 AGE: 68 : 49 SEX: M ROOM/BED: D.2226 AUTHOR: RICKY,DOC PHYSICIAN: REFERRING PHYSICIAN: KATTY BYERS MD DATE OF SERVICE: 02/28/19 Discharge Plan Patient Name: WALT ANDREWS Facility: [facility]:[place] : 1950 Planned Disposition: SNF w Planned Readmission Anticipated Discharge Date: 02/28/19 Discharge Date: Expected LOS: 4 Initial Reviewer: [id number] Initial Review Date: 02/24/2019 Generated: 02/28/19 1:28 pm Comments DCP- Discharge Planning Updated by [email or web address]: Poonam Pearce on 02/28/19 11:[address] Left a message with barbara Larose for [facility] [place] that patient may be able to return tomorrow and updated clinical faxed. I spoke with daughter, Ximena, and she is agreeable to plan. CM will continue to follow and assist with discharge planning/needs. DCP- Discharge Planning Updated by [email or web address]: Jannie Hernandez on 02/24/19 12:[address] DC PLAN: Resident at the [facility] ANTICIPATED DC NEEDS: Return to the [facility] BEBETO Andrews -dtr- [phone] CM called and spoke to patient's daughter/BEBETO Andrews to complete initial dc planning assessment. CM educated Ximena on the CM role and verbal consent given to complete assessment. CM verified patient's address, phone number, and emergency contact phone numbers. Patient lives at the [facility]. 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 He has been in several nursing facilities, one in [place] prior to coming to [place]. She reports he has had a PEG tube in the past and pulled it out. He is unable to ambulate and is bed/chair bound. Two weeks ago the patient was able to feed himself and had adequate po intake. She reports that two weeks ago the group home staff was helping him get into a wheelchair and he fell back and hit his head on a window seal. She reports since that time he has had a decline in mental status and has been unable to swallow. She is unsure if he is able to still feed himself since that time. She reported she has been researching the type of dysphagia he has and she would like the physicians to really look into this. CM discussed to possibility of a peg tube. She reported she would consent to this if it is recommended. She also reports he is a FULL CODE. At discharge the patient will return to the [facility] and she feels this is a safe discharge. She reports he has had rehab [facility] the [facility] [place] but they stopped it because he was not making progress. She would like to consider rehab after this hospitalization to see if he could make progress with the recent decline in his mental status and condition. CM spoke to Poonam CATALAN regarding this information. CM will continue to follow and will assist as needed with dc plans/needs. Jannie Hernandez RN, [facility] DCPIA - Discharge Planning Initial Assessment Updated by [id number]: Jannie Hernandez on 02/24/19 1:25 pm * Is the patient Alert and Oriented? No * How many steps to enter\exit or inside your home? None * PCP Dr. Sandoval * [facility] * [facility]readmission Environment [facility] * Facility Name [facility] [place] - Resident * ADLs Total Dependent * Equipment Wheelchair * List name and contact numbers for known caregivers / representatives who currently or will assist patient after discharge: Ximena TATE (daughter) [phone] * Verbal permission to speak to the caregivers and representatives has been obtained from the patient. Yes * Additional services required to return to the preadmission environment? No * Can the patient safely return to the preadmission environment? Yes * Has this patient been hospitalized within the prior 30 days at any hospital? No Coverage Notice Reviewer: [id number] Bony Pearce Notice Issued Date-Time: 02/28/2019 12:19 Notice Type: Patient Choice Letter Notice Delivered To: Family Member Relationship to Patient: Daughter Yeast Culture Operator Name: Pradeep Andrews Delivery Method: PHONE - Phone Griselda Days: Prior Verbal Notification: Recipient Understood Notice: Yes Recipient Signature: Med Rec Note Co-signed by Attending: Coverage Notice Comment: [facility] for [facility] [place] Reviewer: [id number] Pearce Notice Issued Date-Time: 02/28/2019 12:19 Notice Type: IM Discharge Notice Notice Delivered To: Family Member Relationship to Patient: Daughter Yeast Culture Operator Name: Ximena Andrews Delivery Method: PHONE - Phone Griselda Days: Prior Verbal Notification: Recipient Understood Notice: Yes Recipient Signature: Med Rec Note Co-signed by Attending: Coverage Notice Comment: IMM explained, copy left at bedside. Last DP export: 02/28/19 11:14 am Patient Name: WALT ANDREWS Page [phone] at 1228 All edits/amendments must be made on the electronic document DICTATION DATE: 02/28/19 1228 MIX MILL TENDER: LYNSEY 02/28/19 1228 RPT#: [id number] DC DATE: STATUS: ADM IN [facility] [address] [place] [address] END OF REPORT
--- NOTE | 2019-02-28 13:22 | NUR ---
Nutrition follow-up: PEG tube placed Jevity 1.2 fernanda infusing @ 50 ml/hr; residuals have been 120 ml, 150 ml TF stopped x 4 hours Labs reviewed Wt: 175# H2O flushes increased to 60 ml/hr RDN following.
--- NOTE | 2019-02-28 15:44 | NUR ---
OT NOTE: PT COMPLETED HAIR GROOMING WITH MIN A. PT COMPLETED FACE WASH WITH SET UP. PT COMPLETED ORAL CARE WITH MOD A. PT COMPLETED BED MOB WITH MOD/MAX A. PT COOPERATIVE. THANK YOU, BARRY DUGAN
[2019-02-28 17:10] VITALS: BP 141/76
--- NOTE | 2019-02-28 20:00 | NUR ---
ASSESSMENT PER FLOWSHEET. PEG TUBE IN PLACE WITH JEVITY INFUSING PER FEEDING PUMP AT 50CC'S /HR. O2 2L/M PER NC. HOB UP 30 DEGREES. LINDA MAT ON WITH ALARMS ACTIVATED NO SCD'S WORN. IV PATENT RT FOREARM OF D5W AT 50CC'S/HR. SITE CLEAR. CONDOM CATHETER IN PLACE AND DRAINING CLEAR YELLOW URINE PATIENT SPEECH GARBLED HARD TO UNDERSTAND. TELN. SHOWS SR W.HR AT 65.
[2019-02-28 21:14] VITALS: BP 132/78
--- NOTE | 2019-02-28 22:00 | NUR ---
MEDS GIVEN PER MAR.
--- NOTE | 2019-03-01 00:53 | NUR ---
JESIKA PULLS OFF CONDOM CATHETER UA SPECIMEN OBTAINED AND SENT TO THE LAB.MEDS GIVEN PER MAR
[2019-03-01 01:44] VITALS: BP 131/86
[2019-03-01 03:37] LABS: APPEARANCE CLEAR (CLEAR); BILIRUBIN NEGATIVE (NEGATIVE); COLOR YELLOW (YELLOW); GLUCOSE NEGATIVE (NEGATIVE); KETONE NEGATIVE (NEGATIVE); NITRITE NEGATIVE (NEGATIVE); PROTEIN NEGATIVE (NEGATIVE); SPECIFIC GRAVITY 1.005 (1.005-1.020); UROBILINOGEN NORMAL (NORMAL)
[2019-03-01 04:38] VITALS: BP 123/75
--- NOTE | 2019-03-01 05:07 | NUR ---
EYES CLOSED RESPIRATIONS WITH EASE AND UNLABORED. NO CHANGES IN ASSESSMENT.
[2019-03-01 06:03] LABS: BASOPHILS 0.2 % (0-2); HEMATOCRIT 39.2 % (42.0-54.0); HEMOGLOBIN 13.3 g/dL (13.5-17.5); IMMATURE GRANULOCYTES 0.4 % (0-5); LYMPHOCYTES 26.8 % (15-50); MCH 31.1 pg (26.0-34.0); MCHC 33.9 g/dL (31.0-37.0); MCV 91.6 fL (80.0-100.0); MEAN PLATELET VOLUME 10.9 fL (7.4-10.4); MONOCYTES 6.8 % (2-11); NEUTROPHILS 61.8 % (40-80); PLATELET COUNT 122 10x3/uL (130-400); RBC 4.28 10x6/uL (4.20-6.10); RDW 13.2 % (11.5-14.5); WBC 5.7 10x3/uL (4.8-10.8)
[2019-03-01 06:29] LABS: ALBUMIN 2.1 g/dL (3.4-5.0); ALKALINE PHOSPHATASE 110 U/L (46-116); ALT (SGPT) 12 U/L (10-68); BILIRUBIN - TOTAL 0.21 mg/dL (0.2-1.3); CALC OSMOLALITY 292 mosm/kg (275-300); CALCIUM 8.1 mg/dL (8.5-10.1); CARBON DIOXIDE 33.9 mmol/L (21.0-32.0); CHLORIDE - SERUM 109 mmol/L (98-107); CREATININE - SERUM 0.7 mg/dL (0.6-1.3); GLUCOSE 151 mg/dL (74-106); PHOSPHOROUS 2.7 mg/dL (2.5-4.9); POTASSIUM - SERUM 3.9 mmol/L (3.5-5.1); PROTEIN - SERUM 5.5 g/dL (6.4-8.2); SODIUM 146 mmol/L (136-145); UREA NITROGEN 9 mg/dL (7-18); eGFR NON AFRICAN AMERICAN > 90 mL/min (90-120)
--- NOTE | 2019-03-01 07:40 | NUR ---
PT RESTING IN BED. NO ACUTE DISTRESS NOTED AT THIS TIME. O2 @ 2L NC IN PLACE. AWAKENS TO NAME BEING CALLED. COMMUNICATION IS LIMITED AND GARBLED. IV TO RIGHT ARM WITH D5W @ 50ML/HR INFUSING VIA PUMP. SITE WITHOUT REDNESS OR EDEMA. PEG TUBE INTACT WITH JEVITY 1.2 VARGAS @ 50 ML/HR INFUSING VIA PUMP. 25ML RESIDUAL NOTED AT THIS TIME. HOB ELEVATED. CL WITHIN REACH. CONTINUE POC
[2019-03-01] MEDS ORDERED: GUAIFENESI100 MG/5 M PEG (11:22)
[2019-03-01] MEDS ORDERED: FLORAJEN3 CAPS460 MG PO (11:22)
[2019-03-01] MEDS ORDERED: Aricept PO (11:23)
[2019-03-01] MEDS ORDERED: CLEOCIN HCL300 MG PO (11:24)
[2019-03-01] MEDS ORDERED: LEVOFLOXACIN500 MG PO (11:24)
[2019-03-01 12:19] VITALS: BP 119/68
--- NOTE | 2019-03-01 13:07 | MORECARE ---
CASE MANAGEMENT DISCHARGE SUMMARY PATIENT: WALT ANDREWS VAN UNIT: [id number] ADM DATE: 02/24/19 AGE: 68 : 49 SEX: M ROOM/BED: D.2226 AUTHOR: RICKY,DOC PHYSICIAN: REFERRING PHYSICIAN: KATTY BYERS MD DATE OF SERVICE: 03/01/19 Discharge Plan Patient Name: WALT ANDREWS Facility: [facility]:[place] : 1950 Planned Disposition: SNF w Planned Readmission Anticipated Discharge Date: 02/28/19 Discharge Date: Expected LOS: 4 Initial Reviewer: [email or web address] Initial Review Date: 02/24/2019 Generated: 03/01/19 2:07 pm Comments DCP- Discharge Planning Updated by [email or web address]: Poonam Corleyyvette on 03/01/19 12:[address] I spoke with Ramya and informed that her father was returning to [facility] today. She is in agreement to discharge. I informed her that he would be returning to a nursing home bed at this time. Discharging to the [facility] nursing home bed via ambulance. DCP- Discharge Planning Updated by [email or web address]: Poonam Corleyyvette on 02/28/19 11:[address] Left a message with barbara Larose for [facility], that patient may be able to return tomorrow and updated clinical faxed. I spoke with daughter, Ximena, and she is agreeable to plan. CM will continue to follow and assist with discharge planning/needs. DCP- Discharge Planning Updated by [email or web address]: Jannie Hernandez on 02/24/19 12:[address] DC PLAN: Resident at the [facility] ANTICIPATED DC NEEDS: Return to the [facility] BEBETO Andrews -dtr- [phone] CM called and spoke to patient's daughter/BEBETO Andrews to complete initial dc planning assessment. CM educated Ximena on the CM role and verbal consent given to complete assessment. CM verified patient's address, phone number, and emergency contact phone numbers. Patient lives at the [facility]. 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 He has been in several nursing facilities, one in [place] prior to coming to [place]. She reports he has had a PEG tube in the past and pulled it out. He is unable to ambulate and is bed/chair bound. Two weeks ago the patient was able to feed himself and had adequate po intake. She reports that two weeks ago the skilled nursing staff was helping him get into a wheelchair and he fell back and hit his head on a window seal. She reports since that time he has had a decline in mental status and has been unable to swallow. She is unsure if he is able to still feed himself since that time. She reported she has been researching the type of dysphagia he has and she would like the physicians to really look into this. CM discussed to possibility of a peg tube. She reported she would consent to this if it is recommended. She also reports he is a FULL CODE. At discharge the patient will return to the [facility] and she feels this is a safe discharge. She reports he has had rehab at the [facility] before but they stopped it because he was not making progress. She would like to consider rehab after this hospitalization to see if he could make progress with the recent decline in his mental status and condition. CM spoke to Poonam CATALAN regarding this information. CM will continue to follow and will assist as needed with dc plans/needs. Jannie Hernandez RN, [facility] DCPIA - Discharge Planning Initial Assessment Updated by [email or web address]: Jannie Hernandez on 02/24/19 1:25 pm * Is the patient Alert and Oriented? No * How many steps to enter\exit or inside your home? None * PCP Dr. Sandoval * Pharmacy [facility] * Preadmission Environment Supervisor Travel Trailer [facility] * Facility Name [facility] - Resident * ADLs Total Dependent * Equipment Wheelchair * List name and contact numbers for known caregivers / representatives who currently or will assist patient after discharge: Ximena TATE (daughter) [phone] * Verbal permission to speak to the caregivers and representatives has been obtained from the patient. Yes * Additional services required to return to the preadmission environment? No * Can the patient safely return to the preadmission environment? Yes * Has this patient been hospitalized within the prior 30 days at any hospital? No Coverage Notice Reviewer: [id number] - Poonam Pearce Notice Issued Date-Time: 02/28/2019 12:19 Notice Type: Patient Choice Letter Notice Delivered To: Family Member Relationship to Patient: Daughter Wave Solder Offbearer Name: Pradeep Andrews Delivery Method: PHONE - Phone Griselda Days: Prior Verbal Notification: Recipient Understood Notice: Yes Recipient Signature: Med Rec Note Co-signed by Attending: Coverage Notice Comment: ARIE for [facility] Reviewer: [id number] Bony Pearce Notice Issued Date-Time: 02/28/2019 12:19 Notice Type: IM Discharge Notice Notice Delivered To: Family Member Relationship to Patient: Daughter Wave Solder Offbearer Name: Ximena Andrews Delivery Method: PHONE - Phone Griselda Days: Prior Verbal Notification: Recipient Understood Notice: Yes Recipient Signature: Med Rec Note Co-signed by Attending: Coverage Notice Comment: IMM explained, copy left at bedside. Last DP export: 02/28/19 11:28 am Patient Name: WALT ANDREWS Page [phone] at 1307 All edits/amendments must be made on the electronic document DICTATION DATE: 03/01/19 1306 ONCOLOGY PHARMACIST: LYNSEY 03/01/19 1306 RPT#: [id number] DC DATE: STATUS: ADM IN [facility] [address] [place] [address] END OF REPORT
--- NOTE | 2019-03-01 14:54 | NUR ---
OT NOTE: MOD/MAX ASSIST WITH BED MOB; PT MORE ALERT AND VERBAL TODAY. MOD/MAX ASSIST WITH SIMPLE GROOMING TASKS. A/AROM EXS; GROSS MOTOR ACT TO ASSIST WITH ADLS. ZOILA LINDSAY, OTR/L
--- NOTE | 2019-03-01 15:10 | NUR ---
OT NOTE: PT REQUIRED MAX A FOR BED MOB TASKS. PT REQUIRED MAX A FOR HYGIENE TASKS. MD PRESENT. BARRY ANSWERED MD QUESTIONS REGARDING PERFORMANCE. THANK YOU, BARRY DUGAN
--- NOTE | 2019-03-03 16:22 | MORECARE ---
CASE MANAGEMENT DISCHARGE SUMMARY PATIENT: WALT ANDREWS VAN UNIT: [id number] ADM DATE: 02/24/19 AGE: 68 : 49 SEX: M ROOM/BED: D.2226 AUTHOR: RICKY,DOC PHYSICIAN: REFERRING PHYSICIAN: KATTY BYERS MD DATE OF SERVICE: 03/03/19 Discharge Plan Patient Name: WALT ANDREWS Facility: [facility]:[place] : 1950 Planned Disposition: SNF w Planned Readmission Anticipated Discharge Date: 02/28/19 Discharge Date: 03/01/2019 Expected LOS: 4 Initial Reviewer: [email or web address] Initial Review Date: 02/24/2019 Generated: 03/03/19 5:22 pm Comments DCP- Discharge Planning Updated by [id number]: Poonam Corleyyvette on 03/01/19 12:[address] I spoke with Ramya and informed that her father was returning to [facility] today. She is in agreement to discharge. I informed her that he would be returning to a senior living bed at this time. Discharging to the [facility] senior living bed via ambulance. DCP- Discharge Planning Updated by [email or web address]: Poonam Portia on 02/28/19 11:[address] Left a message with barbara Larose for [facility], that patient may be able to return tomorrow and updated clinical faxed. I spoke with daughter, Ximena, and she is agreeable to plan. CM will continue to follow and assist with discharge planning/needs. DCP- Discharge Planning Updated by [email or web address]: Jannie Hernandez on 02/24/19 12:[address] DC PLAN: Resident at the [facility] ANTICIPATED DC NEEDS: Return to the [facility] BEBETO Andrews -dtr- [phone] CM called and spoke to patient's daughter/BEBETO Andrews to complete initial dc planning assessment. CM educated Ximena on the CM role and verbal consent given to complete assessment. CM verified patient's address, phone number, and emergency contact phone numbers. Patient lives at the [facility]. Ximena reports the patient had a TBI 2 years ago in [place] from falling down stairs onto a tile floor. He has been in several nursing facilities, one in [place] prior to coming to [place]. She reports he has had a PEG tube in the past and pulled it out. He is unable to ambulate and is bed/chair bound. Two weeks ago the patient was able to feed himself and had adequate po intake. She reports that two weeks ago the care home staff was helping him get into a wheelchair and he fell back and hit his head on a window seal. She reports since that time he has had a decline in mental status and has been unable to swallow. She is unsure if he is able to still feed himself since that time. She reported she has been researching the type of dysphagia he has and she would like the physicians to really look into this. CM discussed to possibility of a peg tube. She reported she would consent to this if it is recommended. She also reports he is a FULL CODE. At discharge the patient will return to the [facility] and she feels this is a safe discharge. She reports he has had rehab at the [facility] before but they stopped it because he was not making progress. She would like to consider rehab after this hospitalization to see if he could make progress with the recent decline in his mental status and condition. CM spoke to Poonam CATALAN regarding this information. CM will continue to follow and will assist as needed with dc plans/needs. Jannie Hernandez RN, [facility] DCPIA - Discharge Planning Initial Assessment Updated by [id number]: Jannie Hernandez on 02/24/19 1:25 pm * Is the patient Alert and Oriented? No * How many steps to enter\exit or inside your home? None * PCP Dr. Sandoval * Pharmacy [facility] * Preadmission Environment Forepart Reducer [facility] * Facility Name [facility] - Resident * ADLs Total Dependent * Equipment Wheelchair * List name and contact numbers for known caregivers / representatives who currently or will assist patient after discharge: Ximena TATE (daughter) [phone] * Verbal permission to speak to the caregivers and representatives has been obtained from the patient. Yes * Additional services required to return to the preadmission environment? No * Can the patient safely return to the preadmission environment? Yes * Has this patient been hospitalized within the prior 30 days at any hospital? No Coverage Notice Reviewer: [id number] - Poonam Pearce Notice Issued Date-Time: 02/28/2019 12:19 Notice Type: Patient Choice Letter Notice Delivered To: Family Member Relationship to Patient: Daughter Pneumatic Jacketer Name: Pradeep Andrews Delivery Method: PHONE - Phone Griselda Days: Prior Verbal Notification: Recipient Understood Notice: Yes Recipient Signature: Med Rec Note Co-signed by Attending: Coverage Notice Comment: ARIE for [facility] Reviewer: [id number] - Poonam Pearce Notice Issued Date-Time: 02/28/2019 12:19 Notice Type: IM Discharge Notice Notice Delivered To: Family Member Relationship to Patient: Daughter Pneumatic Jacketer Name: Ximena Andrews Delivery Method: PHONE - Phone Griselda Days: Prior Verbal Notification: Recipient Understood Notice: Yes Recipient Signature: Med Rec Note Co-signed by Attending: Coverage Notice Comment: IMM explained, copy left at bedside. Last DP export: 03/01/19 12:07 p Patient Name: WALT ANDREWS Page [phone] at 1622 All edits/amendments must be made on the electronic document DICTATION DATE: 03/03/19 1622 DIRECTOR HARDWARE: LYNSEY 03/03/19 1622 RPT#: [id number] DC DATE:03/01/19 STATUS: DIS IN [facility] [address] [place] [address] END OF REPORT
--- NOTE | 2019-03-08 10:07 | OP ---
PATIENT NAME: WALT GONCALVES MEDICAL RECORD: [id number] :[birth year] LOCATION:D.MS Castro2226 ADMISSION DATE:02/24/19 SURGEON: BRANDI WONG MD DATE OF OPERATION: 02/25/2019 PREOPERATIVE DIAGNOSES: 1. Aspiration. 2. Traumatic brain injury. 3. 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 4. Dysphagia. 5. Hypernatremia. 6. Seizure disorder. POSTOPERATIVE DIAGNOSES: 1. Aspiration. 2. Traumatic brain injury. 3. 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 4. Dysphagia. 5. Hypernatremia. 6. Seizure disorder. PROCEDURE: PEG tube placement. SURGEON: Brandi Wong MD REPORT OF PROCEDURE: An Olympus endoscope was advanced through the mouth and esophagus and into the stomach. We prepped an area on the stomach and infused 5 cc of 1% lidocaine. The patient had a previous gastrostomy tube, we can see the scarring on the abdominal wall and in the gastric lumen. We made a small skin incision with an 11-blade in this old scar tissue. I was able to pass an Angiocath needle into the lumen of the stomach. A wire was advanced through this, which was snared and brought out through the mouth and esophagus. We then affixed the PEG tube to the wire and pulled these through the mouth and esophagus and through the abdominal wall until it rested in good position at 3 cm at the skin. This was dressed appropriately. The scope was reinserted and we were able to visualize the PEG tube in good position with no sign of any internal bleeding. COMPLICATIONS: None. CONDITION: Stable. ANESTHESIA: TIVA. BLOOD LOSS: Minimal. TRANSINT:[id number] Voice Confirmation ID: [id number] DOCUMENT ID: [id number] OPERATIVE REPORT [id number] SACHABRANDI LYMAN MD at 1007 CC: [id number] DICTATION DATE: 02/25/19 1209 PERSONAL DRIVER: 02/25/19 1218 DIS IN 03/01/[address] [address]
== END 2019-03-01 16:15 | DRG 177 ==
LOC: D.ER 10:24 → D.MS 12:36
PROVIDERS: Family Medicine; Internal Medicine Nephrology; Surgery; ADMIT Family Medicine Adult Medicine; ATTEND Family Medicine Adult Medicine
PROC: 0DH63UZ Insertion of Feeding Device into Stomach, Percutaneous Approach (ICD-10-PCS; principal; 2019-02-25 11:00)
DX: J69.0 Pneumonitis due to inhalation of food and vomit (principal); E43 Unspecified severe protein-calorie malnutrition; E87.0 Hyperosmolality and hypernatremia; G72.81 Critical illness myopathy; R13.10 Dysphagia, unspecified; I10 Essential (primary) hypertension; Z87.820 Personal history of traumatic brain injury; G40.909 Epilepsy, unspecified, not intractable, without status epilepticus; E55.9 Vitamin D deficiency, unspecified; E86.0 Dehydration; R73.9 Hyperglycemia, unspecified; D75.1 Secondary polycythemia; D69.6 Thrombocytopenia, unspecified; F03.90 Unspecified dementia, unspecified severity, without behavioral disturbance, psychotic disturbance, mood disturbance, and anxiety

== ENCOUNTER 2019-03-27 23:37 | Emergency (ER) | payer MEDICARE, MEDICAID ==
[~2019-03-27] VITALS: Ht 167.6 cm; Wt 95.5 kg
[~2019-03-27 23:37] MED LIST changes: +CLEOCIN HCL300 MG PO; +FLORAJEN3 CAPS460 MG PO; +GUAIFENESI100 MG/5 M PEG; +LEVOFLOXACIN500 MG PO; +MEDROL4 MG PO
[2019-03-27 23:43] VITALS: Ht 167.6 cm; Wt 95.5 kg
[2019-03-28 02:00] VITALS: BP 127/84
== END 2019-03-28 02:00 ==
LOC: D.ER 23:37
DX: K94.23 Gastrostomy malfunction (principal); Y84.9 Medical procedure, unspecified as the cause of abnormal reaction of the patient, or of later complication, without mention of misadventure at the time of the procedure; I10 Essential (primary) hypertension

== ENCOUNTER 2019-04-26 05:20 | Emergency (ER) | payer MEDICARE, MEDICAID ==
[~2019-04-26] VITALS: Ht 167.6 cm; Wt 109.1 kg
[2019-04-26 05:22] VITALS: Ht 167.6 cm; Wt 109.1 kg
[2019-04-26 06:06] VITALS: BP 135/73
== END 2019-04-26 06:07 ==
LOC: D.ER 05:20
DX: K94.23 Gastrostomy malfunction (principal)

== ENCOUNTER 2019-05-09 22:16 | Emergency (ER) | payer MEDICARE, MEDICAID ==
[~2019-05-09] VITALS: Ht 167.6 cm; Wt 87.3 kg
[2019-05-09 22:22] VITALS: Ht 167.6 cm; Wt 87.3 kg
[2019-05-10 01:02] VITALS: BP 134/81
== END 2019-05-10 01:02 | disposition home or self-care (01) ==
LOC: D.ER 22:16
DX: K94.23 Gastrostomy malfunction (principal); I10 Essential (primary) hypertension

== ENCOUNTER → 2019-05-12 12:41 | Outpatient (CLI) | payer MEDICARE, MEDICAID ==
[2019-05-09 22:22] VITALS: BMI 31.0
== END | disposition home or self-care (01) ==
LOC: D.RAD 12:41
PROVIDERS: ATTEND Internal Medicine Geriatric Medicine
DX: R13.12 Dysphagia, oropharyngeal phase (principal)

== ENCOUNTER 2019-05-12 13:33 | Emergency (ER) | payer MEDICARE, MEDICAID ==
[~2019-05-12] VITALS: Ht 167.6 cm; Wt 87.3 kg
[2019-05-12 13:55] VITALS: Ht 167.6 cm; Wt 87.3 kg
[2019-05-12 17:06] VITALS: BP 140/80
== END 2019-05-12 17:08 ==
LOC: D.ER 13:33
DX: S01.81XA Laceration without foreign body of other part of head, initial encounter (principal); W05.0XXA Fall from non-moving wheelchair, initial encounter; Z91.81 History of falling; Y93.9 Activity, unspecified; I10 Essential (primary) hypertension; R41.841 Cognitive communication deficit; G47.00 Insomnia, unspecified; E78.5 Hyperlipidemia, unspecified

== ENCOUNTER → 2019-05-24 13:10 | Outpatient (CLI) | payer MEDICARE, MEDICAID ==
[2019-05-12 13:55] VITALS: BMI 31.0
== END | disposition home or self-care (01) ==
LOC: D.RAD 13:00
PROVIDERS: ATTEND Internal Medicine Geriatric Medicine
DX: R13.12 Dysphagia, oropharyngeal phase (principal)

== ENCOUNTER 2019-07-04 18:54 | Emergency (ER) | payer MEDICARE, MEDICAID ==
[~2019-07-04] VITALS: Ht 167.6 cm; Wt 90.9 kg
[2019-07-04 19:03] VITALS: Ht 167.6 cm; Wt 90.9 kg
[2019-07-04 21:21] VITALS: BP 122/78
== END 2019-07-04 20:38 | disposition home or self-care (01) ==
LOC: D.ER 18:54
DX: K94.23 Gastrostomy malfunction (principal); Y83.9 Surgical procedure, unspecified as the cause of abnormal reaction of the patient, or of later complication, without mention of misadventure at the time of the procedure; I10 Essential (primary) hypertension; E78.5 Hyperlipidemia, unspecified

== ENCOUNTER → 2019-09-27 12:20 | Outpatient (CLI) | payer MEDICARE, MEDICAID ==
[2019-07-26 19:49] VITALS: BMI 40.4
--- NOTE | ~2019-09-27 | HEMODYNAMI ---
PATIENT:WALT GONCALVES MEDICAL RECORD: [id number] : [birth year] LOCATION:HARDY ADMISSION DATE: 09/27/19 Generatedon:09/27/201913:36 Patient name: WALT GONCALVES Patient #: [id number] SSN: : Date of study: 09/27/2019 Page: Of Hemodynamic Procedure Report Patient Data Patient Demographics Procedure consent was obtained First Name: WALT Gender: Male Last Name: SACHA : 1950 [facility] Initial: [place] Age: 69 year(s) Patient #: [id number] Race: Unknown Additional ID: [id number] Contact details [address]: [address] [place] [address] rd State: [place] City: [place] Zip code: [address] Past Medical History Allergies: No known allergies Admission Admission Data Admission Date: 09/27/2019 Admission Time: 12:20 Procedure Procedure Types Cath Procedure Peripheral Cath Diagnostic Procedure Gastric G Tube Replacement Procedure Description Procedure Date Procedure Date: 09/27/2019 Procedure Start Time: 13:28 Procedure End Time: 13:35 Procedure Staff Name Function Julio Scott MD Performing Physician ELYSE PORRAS RT Monitor Morris Vazquez RT Scrub Paige Urban RN Nurse Leesa Mercedes RN Nurse Procedure Data Cath Procedure Fluoroscopy Diagnostic fluoroscopy Total fluoroscopy Time: 0.2 time: 0.2 min min Contrast Material Contrast Material Type Amount (ml) Isovue 300 15 Hemodynamics Rest Pre Cath Intra NCS Post Cath Procedure Log Time Note 12:53:37 Use device set IR Diagnostic 12:53:39 Bag Decanter (2002S) opened to sterile field. 12:53:39 Sterile Angiographic Pack opened to sterile field. 12:53:40 Tegaderm 4 x 4 (1626W) opened to sterile field. 13:14:37 Morris Vazquez RT (R) (CV) sent for patient. Start room use. 13:14:38 Time tracking: Regular hours (M-F 7:00 - 5:00) 13:15:08 Patient received from Other to IR Alert and oriented. Tansferred to table in Supine position. 13:15:11 Signed procedure consent form obtained from guardian. 13:15:12 Warm blankets applied, and jenifer hugger turned on for patient comfort. 13:15:13 Correct patient and procedure confirmed by team. 13:15:15 - 13:15:19 Pre-procedure instructions explained to patient. 13:15:22 Pre-op teaching completed and patient verbalized understanding. 13:15:32 Patient allergic to No known allergies 13:15:37 Is the patient allergic to Iodine/contrast media? No. 13:15:41 - 13:16:03 Left abdomen area was prepped with chlora-prep and draped in sterile fashion 13:16:07 Alarms reviewed by RJoellen N. 13:16:07 Sharps counted by scrub and verified by R.N. 13:16:09 - 13:25:04 Physician arrived 13:25:05 --------ALL STOP TIME OUT------ 13:25:06 Final Timeout: patient, procedure, and site verified with staff and physician. All members of the team are in agreement. 13:25:10 Left abdomen site verified by team. 13:25:24 GASTRO-ENTERIC 16Fr KATHY Feeding Tube ([id number]) opened to sterile field . 13:27:42 Procedure started. 13:27:43 Full Disclosure recording started 13:28:41 Local anesthetic to Abdominal area with Lidocaine 1% by Julio Scott MD.INITIAL ACCESS ONLY 13:30:33 [facility] .035 145 glide wire ([id number]) opened to sterile field. 13:33:06 Procedure ended.(Physican Out) 13:34:48 Fluoroscopy time 00.20 minutes. 13:34:53 Dose Area Product 2 mGy/cm. 13:34:57 Contrast amount:Isovue 300 15ml. 13:34:58 Sharps counted by scrub and verified by R.N. 13:35:00 Insertion/operative site no bleeding no hematoma. 13:35:04 Procedure and supply charges have been captured, reviewed, submitted an d are correct. 13:35:46 Patient transfered to Other with Stretcher. 13:35:48 Procedure ended. 13:35:48 Full Disclosure recording stopped Device Usage Item Name Manufacture Quantity Catalog Hospital Part Current Minim al Lot# / Number Charge Number Stock Stock Serial# Code Bag Decanter Microtek 1 [id number] [id number] 5 () [employer] Sterile Cardinal 1 [id number] [id number] 5 Angiographic Health Pack Tegaderm 4 x 4 3M 1 1626W 414809 [id number] 5 (1626W) GASTRO-ENTERIC H[place]ard 1 [id number] [id number] 5 16Fr Qian Xiao'er Feeding Tube ([id number]) [facility] 1 [id number] 194214 626724 734360 5 [id number] .035 145 glide wire ([id number]) Signature Audit [place] Stage Time Signature Unsigned Intra-Procedure 09/27/2019 ELYSE PORRAS RT 1:36:02 PM (R) [place] [id number] [place] [address]
== END | disposition home or self-care (01) ==
LOC: D.SP 12:20 → D.RAD 13:00
PROVIDERS: ATTEND Internal Medicine Geriatric Medicine
DX: R13.12 Dysphagia, oropharyngeal phase (principal); I10 Essential (primary) hypertension; E78.2 Mixed hyperlipidemia

== ENCOUNTER 2019-10-17 16:05 | Emergency (ER) | payer MEDICARE, MEDICAID ==
[~2019-10-17] VITALS: Ht 167.6 cm; Wt 96.4 kg
[2019-10-17 16:14] VITALS: Ht 167.6 cm; Wt 96.4 kg
[2019-10-17 17:46] VITALS: BP 111/57
== END 2019-10-17 17:47 ==
LOC: D.ER 16:05
DX: K94.23 Gastrostomy malfunction (principal); I10 Essential (primary) hypertension; E78.5 Hyperlipidemia, unspecified

== ENCOUNTER 2019-11-11 07:15 | Inpatient (IN) | payer MEDICARE, MEDICAID ==
[2019-11-11] VITALS (9 sets, daily range): BP systolic 129–182; BP diastolic 60–99; Ht 167.6 cm; Wt 98.2 kg
[~2019-11-11] VITALS: Ht 167.6 cm; Wt 98.2 kg
[2019-11-11 07:49] LABS: BASOPHILS 0.1 % (0-2); EOSINOPHILS 0 % (0-7); HEMATOCRIT 47.6 % (42.0-54.0); HEMOGLOBIN 16.3 g/dL (13.5-17.5); IMMATURE GRANULOCYTES 0.3 % (0-5); LYMPHOCYTES 12.9 % (15-50); MCH 33.3 pg (26.0-34.0); MCHC 34.2 g/dL (31.0-37.0); MCV 97.3 fL (80.0-100.0); MEAN PLATELET VOLUME 10.1 fL (7.4-10.4); MONOCYTES 3.8 % (2-11); NEUTROPHILS 82.9 % (40-80); PLATELET COUNT 179 10x3/uL (130-400); RBC 4.89 10x6/uL (4.20-6.10); RDW 13.3 % (11.5-14.5); WBC 10.7 10x3/uL (4.8-10.8)
[2019-11-11 08:00] LABS: APTT 22.4 SECONDS (22.8-39.4); INR 0.99 (0.85-1.17); PROTIME 13.1 SECONDS (11.6-15.0)
[2019-11-11 08:01] LABS: CALC OSMOLALITY 277 mosm/kg (275-300); CALCIUM 8.8 mg/dL (8.5-10.1); CARBON DIOXIDE 29.6 mmol/L (21.0-32.0); CHLORIDE - SERUM 103 mmol/L (98-107); CREATININE - SERUM 0.8 mg/dL (0.6-1.3); GLUCOSE 114 mg/dL (74-106); POTASSIUM - SERUM 4.2 mmol/L (3.5-5.1); SODIUM 138 mmol/L (136-145); UREA NITROGEN 15 mg/dL (7-18); eGFR NON AFRICAN AMERICAN > 90 mL/min (90-120)
[2019-11-11 08:23] LABS: ALBUMIN 3.1 g/dL (3.4-5.0); ALKALINE PHOSPHATASE 171 U/L (30-120); ALT (SGPT) 14 U/L (10-68); BILIRUBIN - TOTAL 0.38 mg/dL (0.2-1.3); CKMB 0.7 U/L (0.0-3.6); CREATINE KINASE 30 UL (21-232); PRO BNP 28 pg/mL (0-125); PROTEIN - SERUM 7.3 g/dL (6.4-8.2); TROPONIN-I < 0.017 ng/mL (0.000-0.060)
[2019-11-11 08:30] LABS: BILIRUBIN NEGATIVE (NEGATIVE); GLUCOSE NEGATIVE (NEGATIVE); KETONE NEGATIVE (NEGATIVE); NITRITE NEGATIVE (NEGATIVE); SPECIFIC GRAVITY 1.015 (1.005-1.020); UROBILINOGEN NORMAL (NORMAL)
--- NOTE | 2019-11-11 11:30 | NUR ---
FROM THE ER, HE DOES NOT TALK, MAKES NOISES. HE IS COUGHING A LOT. HAS A PEG TUBE.
--- NOTE | 2019-11-11 16:47 | NUR ---
CALLED THE [facility] FOR MORE INFORMATION. THEY SAID THE PEG TUBE WAS STOPPED UP, I FLUSHED IT WITHOUT ANY PROBLEMS. THEY SAID HIS TUBE FEEDING IS JEVITY 1.5 AT 70 CC/HR AND WITH 60 CC WATER FLUSHES/HOUR.
[2019-11-12] VITALS: BP 133/88
[2019-11-12 04:00] VITALS: BP 129/77
[2019-11-12 05:43] LABS: BASOPHILS 0.1 % (0-2); EOSINOPHILS 0.1 % (0-7); HEMATOCRIT 41.7 % (42.0-54.0); HEMOGLOBIN 13.9 g/dL (13.5-17.5); IMMATURE GRANULOCYTES 0.2 % (0-5); LYMPHOCYTES 18.1 % (15-50); MCH 33.1 pg (26.0-34.0); MCHC 33.3 g/dL (31.0-37.0); MEAN PLATELET VOLUME 10.7 fL (7.4-10.4); MONOCYTES 6.1 % (2-11); NEUTROPHILS 75.4 % (40-80); PLATELET COUNT 172 10x3/uL (130-400); RDW 13.4 % (11.5-14.5); WBC 12.7 10x3/uL (4.8-10.8)
[2019-11-12 05:47] LABS: CALC OSMOLALITY 278 mosm/kg (275-300); CARBON DIOXIDE 29.6 mmol/L (21.0-32.0); CHLORIDE - SERUM 105 mmol/L (98-107); CREATININE - SERUM 0.9 mg/dL (0.6-1.3); GLUCOSE 103 mg/dL (74-106); MAGNESIUM - SERUM 1.8 mg/dL (1.8-2.4); PHOSPHOROUS 3.2 mg/dL (2.5-4.9); POTASSIUM - SERUM 3.7 mmol/L (3.5-5.1); SODIUM 140 mmol/L (136-145); UREA NITROGEN 12 mg/dL (7-18); eGFR NON AFRICAN AMERICAN 89 mL/min (90-120)
[2019-11-12 05:53] LABS: MCV 99.3 fL (80.0-100.0)
[2019-11-12 09:11] VITALS: BP 131/75
--- NOTE | 2019-11-12 10:11 | NUR ---
RESTING IN BED, NO DISTRESS NOTED, MEDS PER PEG TUBE, NPO, CONT TO MONITOR
[2019-11-12 13:05] VITALS: BP 147/73
--- NOTE | 2019-11-12 16:10 | NUR ---
REPORT CALLED TO [facility], HYDRAULIC LIFT OPERATOR CALLED TO Colibri Heart Valve, WILL HYDRAULIC LIFT OPERATOR IN 1 HR.
--- NOTE | 2019-11-12 17:00 | NUR ---
TAKEN FROM HOSPITAL PER STRETCHER TO [facility]
--- NOTE | 2019-11-13 20:28 | MORECARE ---
CASE MANAGEMENT DISCHARGE SUMMARY PATIENT: WALT GONCALVES VAN UNIT: [id number] ADM DATE: 11/11/19 AGE: 69 : [birth year] SEX: M ROOM/BED: D.2205 AUTHOR: CLARENCE GARCÍA PHYSICIAN: REFERRING PHYSICIAN: RICARDO MEDINA MD DATE OF SERVICE: 11/13/19 Discharge Plan Patient Name: WALT GONCALVES Facility: [facility]:[place] : 1950 Planned Disposition: Nursing Facility [facility] Cert Anticipated Discharge Date: Discharge Date: 11/12/2019 Expected LOS: Initial Reviewer: [email or web address] Initial Review Date: 11/11/2019 Generated: 11/13/19 9:28 pm Comments DCP- Discharge Planning Updated by [email or web address]: Jewell Payton on 11/13/19 7:[address] Patient Name: WALT GONCALVES Admission Status: ER Accout number: [id number] Admission Date: 11-11-2019 : 1950 Admission Diagnosis: Attending: RICARDO MEDINA Current LOS: 1 Anticipated DC Date: Planned Disposition: Nursing Facility [facility] Cert Primary Insurance: MEDICARE A & B Discharge Planning Comments: PATIENT IS A RESIDENT AT THE [facility] [phone]. CM CALLED AND NOTIFIED [facility] OF DISCHARGE AND THEY STATED THE PATIENT WILL NEED TO COME BACK VIA AMBULANCE. CM WILL HAVE NURSING TO CALL REPORT [phone] Entry Operator: Jewell Payton DCPIA - Discharge Planning Initial Assessment Updated by [email or web address]: Jewell Payton on 11/13/19 8:23 pm * Is the patient Alert and Oriented? No * PCP [facility] * Pharmacy [facility] * Preadmission Environment Intake Manager [facility] * Facility Name [facility] [phone] Patient Name: WALT GONCALVES Page 72383 at 2027 All edits/amendments must be made on the electronic document DICTATION DATE: 11/13/192027 BELLHOP SERVICE CAPTAIN: LYNSEY 11/13/192027 RPT#: [id number] DC DATE:11/12/19 STATUS: DIS IN [facility] [address] [place] [address] END OF REPORT
== END 2019-11-12 17:00 | DRG 189 ==
LOC: D.ER 07:15 → D.MS 10:57
PROVIDERS: Family Medicine; ADMIT Internal Medicine Nephrology; ATTEND Internal Medicine Nephrology
DX: J96.02 Acute respiratory failure with hypercapnia (principal); E44.0 Moderate protein-calorie malnutrition; J98.11 Atelectasis; J96.01 Acute respiratory failure with hypoxia; F03.90 Unspecified dementia, unspecified severity, without behavioral disturbance, psychotic disturbance, mood disturbance, and anxiety; Z68.37 Body mass index [BMI] 37.0-37.9, adult; G40.909 Epilepsy, unspecified, not intractable, without status epilepticus; R13.10 Dysphagia, unspecified; I10 Essential (primary) hypertension

== ENCOUNTER 2019-11-22 08:59 | Emergency (ER) | payer MEDICARE, MEDICAID ==
[~2019-11-22] VITALS: Ht 167.6 cm; Wt 104.5 kg
[2019-11-22 09:03] VITALS: Ht 167.6 cm; Wt 104.5 kg
[2019-11-22 09:17] LABS: BASOPHILS 0.1 % (0-2); EOSINOPHILS 1.5 % (0-7); HEMATOCRIT 44.2 % (42.0-54.0); HEMOGLOBIN 14.9 g/dL (13.5-17.5); IMMATURE GRANULOCYTES 0.3 % (0-5); MCHC 33.7 g/dL (31.0-37.0); MCV 97.8 fL (80.0-100.0); MONOCYTES 5.1 % (2-11); PLATELET COUNT 187 10x3/uL (130-400); RBC 4.52 10x6/uL (4.20-6.10); RDW 13.1 % (11.5-14.5); WBC 15.7 10x3/uL (4.8-10.8)
[2019-11-22 09:35] LABS: CALC OSMOLALITY 275 mosm/kg (275-300); CALCIUM 8.1 mg/dL (8.5-10.1); CARBON DIOXIDE 30.4 mmol/L (21.0-32.0); CHLORIDE - SERUM 101 mmol/L (98-107); CREATININE - SERUM 0.7 mg/dL (0.6-1.3); GLUCOSE 132 mg/dL (74-106); POTASSIUM - SERUM 4.2 mmol/L (3.5-5.1); SODIUM 137 mmol/L (136-145); UREA NITROGEN 13 mg/dL (7-18); eGFR NON AFRICAN AMERICAN > 90 mL/min (90-120)
[2019-11-22 09:41] LABS: ALBUMIN 2.7 g/dL (3.4-5.0); ALKALINE PHOSPHATASE 145 U/L (30-120); ALT (SGPT) 29 U/L (10-68); BILIRUBIN - TOTAL 0.18 mg/dL (0.2-1.3); PROTEIN - SERUM 6.3 g/dL (6.4-8.2)
[2019-11-22 12:00] VITALS: BP 118/80
== END 2019-11-22 12:00 ==
LOC: D.ER 08:59
PROVIDERS: Family Medicine
DX: R05 Cough (principal); D72.829 Elevated white blood cell count, unspecified; R06.02 Shortness of breath; Z86.73 Personal history of transient ischemic attack (TIA), and cerebral infarction without residual deficits; I10 Essential (primary) hypertension